=== PATIENT | male | born 1940 | race Caucasian/White ===

== ENCOUNTER 2016-10-23 14:39 | Inpatient (IN) ==
[2016-10-23] MEDS ORDERED: methylPREDNISolone SOD SUC 125 MG/2 ML VIAL IV STA (15:38)
[2016-10-23] MEDS ORDERED: LEVOFLOXACIN INJ 750 MG in PREMIX 1 EACH IV STA (15:38)
[2016-10-23] MEDS ORDERED: ALBUTEROL/IPRATROPIUM 3 ML NEB RESP TX STA (15:38)
[2016-10-23] MEDS ORDERED: ONDANSETRON 4 MG/2 ML VIAL IV STA (15:38)
--- NOTE | 2016-10-23 15:43 | Emergency Department Note ---
Arrival - Arrival Chief Complaint: Upper Respiratory Stated Complaint: vomiting,sob ED Nursing Triage Note: C/O Having coughing and congestion since last evening., + chills., + nausea., + vomiting ., Mode of Arrival: Wheelchair Limitations: No Limitations Source: Patient Time Seen by Provider: 10/23/16 15:38 - History of Present Illness HPI Narrative: This 76-year-old white male presents with 4 days of progressive cough productive of discolored sputum, intermittent wheeze, nasal congestion and drainage, increasing dyspnea on exertion, nausea, vomiting, and loose stools. He denies chills or fever but does have some mild mechanical chest wall pain with heavy coughing. Currently he appears in no acute medical distress. Onset (ago): day(s) (Patient presents 4 days post onset of symptoms) Allergies/Adverse Reactions: Allergies Allergy/AdvReac Type Severity Reaction Status Date / Time fish oil Allergy HIVES Verified 10/23/16 14:46 iodine Allergy HIVES Verified 10/23/16 14:46 ORANGE JUICE Allergy Severe RASH Uncoded 04/08/16 06:07 SHRIMP Allergy Severe RASH Uncoded 04/08/16 06:07 Home Medications: Home Medications Medication Instructions Recorded Confirmed Type Amlodipine Besylate 5 mg PO BID 10/24/14 10/23/16 History Atenolol 50 mg PO QAM 10/24/14 10/23/16 History Glimepiride 4 mg PO QAM 10/24/14 10/23/16 History Losartan [Cozaar] 50 mg PO DAILY 10/24/14 04/08/16 History Sertraline [Zoloft] 2 tablet PO DAILY 10/24/14 04/08/16 History Simvastatin [Zocor] 10 mg PO BEDTIME 10/24/14 04/08/16 History hydroCHLOROthiazide 25 mg PO DAILY 10/24/14 04/08/16 History [Hydrochlorothiazide] Pramipexole [Mirapex] 1.25 mg PO BEDTIME 12/29/15 04/08/16 History Cholecalciferol (Vitamin D3) 2,000 unit PO DAILY 10/23/16 History [Vitamin D3] Ferrous Sulfate 325 mg PO DAILY 10/23/16 History Hydrocodone/Acetaminophen 1 tablet PO Q6H PRN 10/23/16 History [Hydrocodon-Acetaminophn 10-325] Magnesium Oxide 400 mg PO BID 10/23/16 History Metformin HCl [Metformin HCl ER] 1,000 mg PO BID 10/23/16 History Trazodone HCl 100 mg PO BEDTIME 10/23/16 History raNITIdine HCl [Ranitidine HCl] 300 mg PO BID 10/23/16 History Review of System - Review of System 12 point system: reviewed and no additional remarkable complaints except as stated - Review of System Constitutional: Present: as per HPI Head/Ears/Nose/Throat: Present: see HPI Respiratory: Present: as per HPI Cardiovascular: Present: as per HPI Gastrointestinal: Present: as per HPI Medical,Surgical,& Family Hx - Medical History Cardio: History of: CAD, [place] Psychological: History of: Anxiety Disorders Neurology: No history of: Seizures HEENT: History of: Eye Problem (SQUAMOUS CELL LEFT EYE LESION) Endocrine: History of: Diabetes Mellitus (NIDDM) Rheumatology: History of;: Rheumatoid Arthritis Genitourinary: History of: Bladder Problem ([place]) Gastrointestinal: History of: GERD Musculoskeletal: History of: Back/Neck Problems (treated at [place] [facility]), Musculoskeletal Problems (right lower leg, restless legs) Other: History of: MRSA - Surgical History Cardiac Surgeries: Sugical HX of: Cardiac Catheterization, Cardiac Surgery ( CABG STENT OPEN GEART DR MARY OWEN) Thoracic Surgeries: Patient denies;: Organ Transplant HEENT Surgeries: Surgical HX of: Eye Surgery (EXCISION LEFT EYE WITH FROZEN SECTION) Abdominal Surgeries: Surgical HX of: Appendectomy, Cholecystectomy Reproductive Surgeries: Surgical HX of;: Cystoscopy Patient denies;: Genitourinary Surgery (TURB 04/02) Orthopedic Surgeries: Surgical HX of;: Orthopedic Surgery (right shoulder repair , arthrodesis left ankle BACK) - Family History Family History: Reports;: Family Diabetes (SON), Family Heart Disease (SON), Family Hypertension (SON) Denies;: Family Anesthesia Reaction, Family Cancer, Family Psychiatric Problems, Family Stroke - Social History Smoking Status: Never smoker Frequency of Alcohol Use: None Type of Drug Use: None Exam Physical Examination: GENERAL: Well developed, well nourished elderly white male in no acute distress. HEENT: Normocephalic. No trauma. Moist mucous membranes. EOMI. PERRLA. ENT ears clear, throat clear, nose reveals nasal mucosa erythema and edema NECK: Supple. Cervical adenopathy. CARDIAC: Regular. No murmurs. Heart rate 78 CHEST: Scattered expiratory wheeze and rhonchi. No respiratory distress. O2 sat 93% ABDOMEN: Soft. Nontender. Active bowel sounds. EXTREMITIES: No trauma. Normal ROM. No pedal edema. SKIN: No diaphoresis. No rash. NEURO: Alert. Neuro intact. No focal deficits. Vital Signs: Vital Signs Temperature 99.0 F 10/23/16 15:46 Pulse Rate 81 10/23/16 16:12 Respiratory Rate 17 10/23/16 16:12 Blood Pressure 156/57 10/23/16 15:46 O2 Sat by Pulse Oximetry 100 10/23/16 16:12 Course - Reevaluation(s) Reevaluation #1: Advised patient in the face of a pneumonia that he would need admission. - Consultations Consultation #1: Discussed with hospitalist service will admit for further evaluation treatment. Results - Labs CBC & BMP: 10/23/16 15:35 10/23/16 15:35 Labs: I reviewed the laboratory noted the bump in white cell count and troponin with moderate decrement in hematocrit. - Impressions EKG: Sinus rhythm at 77 with normal [place] interval and QRS duration. Evidence of old lateral [place]. Nonspecific ST changes with no acute injury pattern noted. - Diagnostic Findings Procedure: Chest x-ray: image reviewed by me, report reviewed by me (Pneumonia medial right lung base) Disposition Clinical Impression: Pneumonia, COPD Case discussed with: patient, patient's family Disposition: Still a Patient Condition: Guarded Time of Disposition: 16:45
[2016-10-23 15:51] LABS: Basophils % 0.3 % (0.0-0.8); Eosinophils # 0.1 10*3/uL (0.0-0.87); Eosinophils % 0.9 % (0.00-10.9); Hematocrit 35.2 VOL% (42.0-52.0); Hemoglobin 12.2 GM/DL (14.0-18.0); Immature Granulocytes % 0.5 %; Immature Granulocytes Absolute 0.06 #; Lymphocytes # 1.3 10*3/uL (1.4-4.0); Mean Corpuscular HGB Conc 34.7 GM/DL (32-36); Mean Corpuscular Hemoglobin 30 PG (27-34); Mean Corpuscular Volume 87.6 FL (87-102); Mean Platelet Volume 10.6 FL (9.6-12.0); Monocytes # 1.1 10*3/uL (0.11-0.8); Monocytes % 10.1 % (1.7-12.7); Neutrophils # 8.4 10*3/uL (1.4-7.4); Neutrophils % 76.2 % (38.7-73.9); Platelet Count 187 T/CUMM (130-400); Red Blood Count 4.02 MC/CUMM (3.8-5.5); Red Cell Distribution Width 14.2 % (9.3-17.3)
[2016-10-23] MEDS ORDERED: ONDANSETRON 4 MG/2 ML VIAL ONE (15:54)
[2016-10-23] MEDS ORDERED: methylPREDNISolone SOD SUC 125 MG/2 ML VIAL ONE (15:54)
--- NOTE | 2016-10-23 16:07 | XRay Report ---
History: Cough and fever Date: 10/23/2016 Study: Chest x-ray PA and lateral Comparison exam: October 24, 2014 The cardiac silhouette is not enlarged. There is no mediastinal mass. The patient is status post prior median sternotomy. There is mild to moderate aortic arch calcification. The pulmonary vasculature is not engorged. There is no pleural effusion. The lungs are well-expanded. There are some scattered emphysematous changes in the lungs. There is some equivocal mild infiltrate in the medial right lung base. There is moderate thoracic spondylosis and mild to moderate osteopenia. Impression: Equivocal low-grade pneumonia medial right lung base. Otherwise unchanged PROCEDURE INTERPRETED AT [facility] DEPARTMENT OF RADIOLOGY Final Report Signed by: Dr. Lakesha Ryan
[2016-10-23 16:14] LABS: Alanine Aminotransferase 18 U/L (16-61); Alkaline Phosphatase 54 U/L (45-117); Aspartate Amino Transferase 15 U/L (0-37); Blood Urea Nitrogen 20 MG/DL (7-18); Calcium 8.6 MG/DL (8.5-10.1); Glucose 195 MG/DL (74-106); Osmolality,Calculated 269.7 MOS/KG (273-304); Sodium 131 MMOL/L (136-145); Total Protein 7.2 G/DL (6.4-8.3)
[2016-10-23 16:16] LABS: Troponin I Only 0.124 NG/ML (0.00-0.045)
[2016-10-23 16:25] LABS: INR 1.1; PT Patient Result 11.2 SECS; Partial Thromboplastin Time 32.8 SECS (0-40)
--- NOTE | 2016-10-23 16:29 | EKG Report ---
Stationary ECG Study [facility] ER Test Date: 10/23/2016 4:24:25 PM Pat Name: LUÍS HERZOG Department: Room: Gender: M [employer]ting [employer]: : 1940 Requested by: Samir Cifuentes Order Number: [id number] Reading MD: HERACLIO GARRETT Intervals [place] Rate: 77 P: 114 NV: 166 QRS: 88 QRSD: 98 T: 103 QT: 376 QTc: 408 Interpretive Statements SINUS RHYTHM LATERAL MYOCARDIAL INFARCTION, OF INDETERMINATE AGE WARNING: DATA QUALITY MAY AFFECT INTERPRETATION Electronically Signed On 10-24-16 09:04:27 CDT by HERACLIO GARRETT [email or web address]
[2016-10-23] MEDS ORDERED: LEVOFLOXACIN INJ 150 ML IV ONE (16:39)
[2016-10-23] MEDS ORDERED: ALBUTEROL 2.5 MG/3 ML NEB RESP TX PRN (16:39)
[2016-10-23] MEDS ORDERED: LEVOFLOXACIN INJ 750 MG in PREMIX 1 EACH IV SCH (17:00)
--- NOTE | 2016-10-23 17:23 | Hospitalist History & Physical ---
Assessment and Plan (1) Severe sepsis Status: Acute Assessment and plan: Upon review of the patient's medical record, at the time of ED presentation the patient's respiratory rate was noted at 20. In addition, the neutrophil percentage was grossly elevated at 76.2. Chest x-ray significant for equivocal low-grade pneumonia affecting the medial right base lung and the patient's lactic acid was noted at 3.2. Based on these findings, the patient meets the sepsis criteria. We will initiate the sepsis bundle. Current Visit: Yes (2) Elevated troponin I level Status: Acute Assessment and plan: Troponin level was noted at 0.124 at the time of admission. We will obtain serial cardiac enzymes. Given the severity of the patient's comorbidities, we will consult cardiology to evaluate and assist during the clinical encounter. Current Visit: Yes (3) Right middle lobe pneumonia Status: Acute Assessment and plan: Chest x-ray significant for right middle lobe pneumonia. We will start empiric antibiotic coverage, inhaled bronchodilators, intravenous corticosteroids, and recheck chest x-ray in a.m. Current Visit: Yes (4) Diabetes mellitus type 1 Status: Acute Assessment and plan: We will obtain hemoglobin A1c and start Accu-Cheks with sliding scale coverage. Current Visit: Yes History of Present Illness Chief complaint: Shortness of breath and vomiting History of present illness: This is a chronically ill 6-year-old male that presented to the ED at [facility] for the evaluation of vomiting and shortness of breath. The patient has a medical history significant for hypertension, chronic obstructive pulmonary disease, hyperlipidemia, restless leg syndrome, anemia, type 2 diabetes, insomnia, gastroesophageal reflux disease, depression, rheumatoid arthritis, bladder cancer, chronic neck and back pain, methicillin- resistant Staphylococcus aureus, and anxiety. The patient has surgical history significant for cardiac catheterization with stent placement, coronary artery bypass graft, left eye excision with frozen section, appendectomy, cholecystectomy, cystoscopy, transurethral resection of the bladder, right shoulder repair, left ankle repair. The patient reported the onset of symptoms 4 days prior to presentation. He reported that he initially started experience a cough that gradually progressed to a productive cough with discolored sputum. In addition, he reported that he experience an intermittent wheeze, nasal congestion, nasal drainage, increasing dyspnea on exertion, nausea, vomiting, and loose stools. He denied chills and fever however, reported mild chest wall pain and attributed that to severe coughing His symptoms became severe this morning prompting him to present to the ED for further evaluation. The patient was assessed at the time of ED presentation. The patient was noted to be experiencing respiratory difficulty and inhaled bronchodilator treatments were initiated. The patient was noted to be febrile with a temperature noted at 99 even. Labs were obtained which were significant for hemoglobin 12.2, neutrophil percentage 76.2, #percentage 12.0, neutrophil #8.4, lymphocytes #1.3 , monocytes #1.1 hematocrit 35.2, sodium 131, chloride 97, BUN 20, glucose 195, lactic acid 3.2, troponin 0 0.124, BNP 166, albumin 3.0, and globulin 4.2. Chest x-ray significant for equivocal low-grade pneumonia medial right base lung. After brief discussion with both Dr. Castellanos and Dr. Edward, the patient will be admitted to the hospitalist service for continuation of care. Due to the elevation in the patient's troponins at the time of ED presentation, the patient will be placed on the telemetry unit for close observation and a cardiology consultation has been requested. Home medications have been reviewed and reconciled. CODE STATUS discussed; patient is a FULL CODE. Upon review of the patient's medical record, at the time of ED presentation the patient's respiratory rate was noted at 20. In addition, the neutrophil percentage was grossly elevated at 76.2. Chest x-ray significant for equivocal low-grade pneumonia affecting the medial right base lung and the patient's lactic acid was noted at 3.2. Based on these findings, the patient meets the severe sepsis criteria. We will initiate the sepsis bundle. Home Medications Medication Instructions Recorded Confirmed Type Amlodipine Besylate 5 mg PO BID 10/24/14 10/23/16 History Atenolol 50 mg PO QAM 10/24/14 10/23/16 History Glimepiride 4 mg PO QAM 10/24/14 10/23/16 History Losartan [Cozaar] 50 mg PO QAM 10/24/14 10/23/16 History Sertraline [Zoloft] 100 mg PO DAILY W/SUPPER 10/24/14 10/23/16 History Simvastatin [Zocor] 10 mg PO DAILY W/SUPPER 10/24/14 10/23/16 History hydroCHLOROthiazide 25 mg PO QAM 10/24/14 10/23/16 History [Hydrochlorothiazide] Pramipexole [Mirapex] 1.25 mg PO BEDTIME 12/29/15 10/23/16 History Aspirin EC Tab 325 mg PO QAM 10/23/16 10/23/16 History Cholecalciferol (Vitamin D3) 2,000 unit PO QAM 10/23/16 10/23/16 History [Vitamin D3] Ferrous Sulfate 325 mg PO QAM 10/23/16 10/23/16 History Hydrocodone/Acetaminophen 1 tablet PO Q6H PRN 10/23/16 10/23/16 History [Hydrocodon-Acetaminophn 10-325] Magnesium Oxide 400 mg PO BID 10/23/16 10/23/16 History Metformin HCl [Metformin HCl ER] 1,000 mg PO BID 10/23/16 10/23/16 History Trazodone HCl 100 mg PO BEDTIME 10/23/16 10/23/16 History raNITIdine HCl [Ranitidine HCl] 300 mg PO BID 10/23/16 10/23/16 History Allergies Allergy/AdvReac Type Severity Reaction Status Date / Time fish oil Allergy HIVES Verified 10/23/16 14:46 iodine Allergy HIVES Verified 10/23/16 14:46 ORANGE JUICE Allergy Severe RASH Uncoded 04/08/16 06:07 SHRIMP Allergy Severe RASH Uncoded 04/08/16 06:07 Medical,Surgical,& Family Hx - Medical History Cardio: History of: CAD, [place] Psychological: History of: Anxiety Disorders Neurology: No history of: Seizures HEENT: History of: Eye Problem (SQUAMOUS CELL LEFT EYE LESION) Endocrine: History of: Diabetes Mellitus (NIDDM) Rheumatology: History of;: Rheumatoid Arthritis Genitourinary: History of: Bladder Problem ([place]) Gastrointestinal: History of: GERD Musculoskeletal: History of: Back/Neck Problems (treated at [place] [facility]), Musculoskeletal Problems (right lower leg, restless legs) Other: History of: MRSA - Surgical History Cardiac Surgeries: Sugical HX of: Cardiac Catheterization, Cardiac Surgery ( CABG STENT OPEN GEART DR MARY OWEN) Thoracic Surgeries: Patient denies;: Organ Transplant HEENT Surgeries: Surgical HX of: Eye Surgery (EXCISION LEFT EYE WITH FROZEN SECTION) Abdominal Surgeries: Surgical HX of: Appendectomy, Cholecystectomy Reproductive Surgeries: Surgical HX of;: Cystoscopy Patient denies;: Genitourinary Surgery (TURB 04/02) Orthopedic Surgeries: Surgical HX of;: Orthopedic Surgery (right shoulder repair , arthrodesis left ankle BACK) - Family History Family History: Reports;: Family Diabetes (SON), Family Heart Disease (SON), Family Hypertension (SON) Denies;: Family Anesthesia Reaction, Family Cancer, Family Psychiatric Problems, Family Stroke - Social History Smoking Status: Never smoker Frequency of Alcohol Use: None Type of Drug Use: None Exam - Constitutional Vitals: Period Temp Pulse Resp BP Sys/[place] Pulse Ox Last 24 Hr 99.0 F-99.0 F 73-81 16-20 132-156/57-78 92-100 Results - Labs CBC & BMP: 10/23/16 15:35 10/23/16 15:35 Sepsis - Sepsis Classification of Sepsis: Severe Sepsis Possible / Suspected infection from: Right lower lobe pneumonia - Physical Exam Physical Exam: Upon review of the patient's medical record, at the time of ED presentation the patient's respiratory rate was noted at 20. In addition, the neutrophil percentage was grossly elevated at 76.2. Chest x-ray significant for equivocal low-grade pneumonia affecting the medial right base lung and the patient's lactic acid was noted at 3.2. Based on these findings, the patient meets the severe sepsis criteria. We will initiate the sepsis bundle. - Physical Exam Respiratory exam: rhonchi, wheezes Capillary Refill: Less Than 3 Seconds Peripheral pulses: Radial (L): 1+, Radial (R): 1+, Dorsalis Pedis (L) PM: 1+, Dorsalis Pedis (R) PM: 1+, Posterior Tibialis (L): 1+, Posterior Tibialis (R): 1 + Cardiovascular exam: regular rate and rhythm Skin exam: normal color
[2016-10-23] MEDS ORDERED: GLUCAGON 1 MG VIAL IM PRN (17:29)
[2016-10-23] MEDS ORDERED: DEXTROSE 50% 25 GM/50 ML SYRINGE IV PRN (17:29)
[2016-10-23] MEDS ORDERED: ACETAMINOPHEN 325 MG TABLET PO PRN (18:14)
[2016-10-23] MEDS ORDERED: MORPHINE 2 MG/1 ML SYRINGE IV PRN (18:14)
[2016-10-23] MEDS: SODIUM CHLORIDE 0.9% 1,000 ML IV SCH (18:37)
--- NOTE | 2016-10-23 19:15 | Ultrasound Report ---
History: Dyspnea Date: 10/23/2016 Study: Bilateral lower extremity color-flow venous Doppler study Comparison exam: No previous Color Doppler, wave form analysis, and compression analysis of the deep veins of both lower extremities from the common femoral vein level through the popliteal vein level shows that the veins are readily compressible. There is no abnormal intraluminal material to suggest thrombus. Waveform analysis is unremarkable. Ultrasound images were captured and archived Impression: No evidence of acute DVT PROCEDURE INTERPRETED AT [facility] DEPARTMENT OF RADIOLOGY Final Report Signed by: Dr. Lakesha Ryan
[2016-10-23] MEDS: ALBUTEROL/IPRATROPIUM 3 ML NEB RESP TX SCH (20:58)
[2016-10-23] MEDS: PRAMIPEXOLE 1 MG TABLET PO SCH (21:49)
[2016-10-23] MEDS: PRAMIPEXOLE 0.25 MG TABLET PO SCH (21:49)
[2016-10-23] MEDS: INSULIN REGULAR 100 UNIT/ML SUBCUT SCH (21:49)
[2016-10-23] MEDS: INSULIN GLARGINE 100 UNIT/ML SUBCUT SCH (21:51)
[2016-10-23] MEDS: FAMOTIDINE 20 MG TABLET PO SCH (21:52)
[2016-10-23] MEDS: ENOXAPARIN 40 MG/0.4 ML SYRINGE SUBCUT SCH (21:52)
[2016-10-23] MEDS: MAGNESIUM OXIDE 400 MG TABLET PO SCH (21:53)
[2016-10-23] MEDS: traZODone 50 MG TABLET PO SCH (21:53)
[2016-10-23] MEDS: amLODIPine 5 MG TABLET PO SCH (21:53)
[2016-10-23] MEDS: cefTRIAXone 1,000 MG in SODIUM CHLORIDE 0.9% 100 ML IV SCH (21:53)
[2016-10-24] MEDS: ALBUTEROL/IPRATROPIUM 3 ML NEB RESP TX SCH ×4 (01:18→18:48)
[2016-10-24] MEDS: SODIUM CHLORIDE 0.9% 1,000 ML IV SCH (04:44)
[2016-10-24 05:19] LABS: Basophils % 0.2 % (0.0-0.8); Hematocrit 31.6 VOL% (42.0-52.0); Hemoglobin 11.1 GM/DL (14.0-18.0); Immature Granulocytes % 0.6 %; Immature Granulocytes Absolute 0.06 #; Lymphocytes # 0.7 10*3/uL (1.4-4.0); Lymphocytes % 7.4 % (21.2-54.2); Mean Corpuscular HGB Conc 35.1 GM/DL (32-36); Mean Corpuscular Hemoglobin 31 PG (27-34); Mean Corpuscular Volume 87.1 FL (87-102); Mean Platelet Volume 10.7 FL (9.6-12.0); Monocytes # 0.5 10*3/uL (0.11-0.8); Monocytes % 5.4 % (1.7-12.7); Neutrophils # 8.1 10*3/uL (1.4-7.4); Neutrophils % 86.4 % (38.7-73.9); Platelet Count 186 T/CUMM (130-400); Red Blood Count 3.63 MC/CUMM (3.8-5.5); Red Cell Distribution Width 14.4 % (9.3-17.3); White Blood Count 9.4 T/CUMM (4-12)
[2016-10-24 05:56] LABS: Albumin 2.8 G/DL (3.4-5.0); Calcium 8.2 MG/DL (8.5-10.1); Osmolality,Calculated 282.2 MOS/KG (273-304); Potassium 4.7 MMOL/L (3.5-5.1); Total Protein 6.3 G/DL (6.4-8.3)
[2016-10-24 06:16] LABS: Magnesium 2.5 MG/DL (1.8-2.4); Phosphorous 2.9 MG/DL (2.5-4.9)
[2016-10-24] MEDS: methylPREDNISolone SOD SUC 40 MG/1 ML VIAL IV SCH ×3 (09:02→16:04)
[2016-10-24] MEDS: INSULIN REGULAR 100 UNIT/ML SUBCUT SCH ×4 (09:03→21:53)
--- NOTE | 2016-10-24 10:32 | XRay Report ---
History: COPD Date: 10/24/2016 Study: Chest x-ray AP portable Comparison exam: 10/23/2016 The cardiac silhouette is not enlarged. There is some pulmonary vascular engorgement. The mediastinal contours are otherwise unchanged in this patient status post prior median sternotomy. There is mild hazy edema in the lower lungs. There is mild right pleural effusion. Osseous structures are unchanged. Impression: Evidence of cardiomegaly and interval development of CHF PROCEDURE INTERPRETED AT [facility] DEPARTMENT OF RADIOLOGY Final Report Signed by: Dr. Lakesha Ryan
--- NOTE | 2016-10-24 10:34 | Hospitalist Progress Note ---
Assessment and Plan (1) Right middle lobe pneumonia Status: Acute Assessment and plan: Secondary bronchospasm with stable hemodynamics and oxygen levels. Current Visit: Yes (2) Diabetes mellitus Status: Chronic Current Visit: Yes (3) Atherosclerotic cardiovascular disease Status: Chronic Assessment and plan: History of percutaneous interventions followed by aortocoronary bypass graft Current Visit: Yes Hospitalist: Subjective Interval history: 76-year-old male non-smoker for 25 years with no history of pulmonary disease presented with progressive shortness of breath associated with bronchospasm fever and cough productive of discolored sputum. The patient demonstrated on presentation radiographic evidence of a right middle right lower lobe infiltrative process with loss of detail the right hemidiaphragm. He was admitted and placed on antibiotics for community-acquired pneumonia. He is remained afebrile subsequent to admission with stable vital signs. He continues to cough with sputum production. His overnight oxygen saturations on 3 L per nasal cannula have been 94-95%. Patient has history of remote percutaneous interventions followed by aortocoronary bypass grafting. On presentation the patient's troponin was recorded 0.050 slightly of elevated above normal. His admitting EKG demonstrates a severe rightward P-wave axis suggesting limb lead reversal. Present precordial leads are unremarkable. Overnight he is maintaining sinus rhythm with gradual slowing of his heart rate as his bronchospasm has improved. The patient is a known diabetic treated with oral agent. Blood sugars have been elevated with the introduction of corticosteroids subsequent to admission. He has been covered with a sliding scale and in addition is listed as taking Lantus insulin 16 units at bedtime. Exam - Constitutional Vitals: Period Temp Pulse Resp BP Sys/[place] Pulse Ox Last 24 Hr 96.6 F-99.0 F 63-81 16-20 113-156/55-89 90-100 General appearance: over weight - Respiratory Respiratory exam: Present: rales (Right base), wheezes (Confined to the right base only). Absent: rhonchi - Cardiovascular Cardiovascular exam: Present: regular rate and rhythm - GI/Abdominal GI/Abdominal exam: Present: normal bowel sounds. Absent: organomegaly, tenderness - Extremities Exam Extremities exam: Absent: edema - Neurological Exam Neurological exam: Present: alert, oriented X3 Results - Labs CBC & BMP: 10/24/16 04:46 10/24/16 04:46 Labs: Magnesium 2.5 Albumin 2.8 - Diagnostic Findings Procedure: Chest x-ray: image reviewed by me (Apical lordotic project median sternotomy loss of detail at right diaphragm.), Ultrasound: report reviewed by me (Negative for DVT)
[2016-10-24] MEDS: LOSARTAN 50 MG TABLET PO SCH (11:13)
[2016-10-24] MEDS: MAGNESIUM OXIDE 400 MG TABLET PO SCH ×2 (11:14→21:52)
[2016-10-24] MEDS: FAMOTIDINE 20 MG TABLET PO SCH ×2 (11:14→21:53)
[2016-10-24] MEDS: ATENOLOL 50 MG TABLET PO SCH (11:15)
[2016-10-24] MEDS: ASPIRIN EC 325 MG TABLET PO SCH (11:15)
[2016-10-24] MEDS: amLODIPine 5 MG TABLET PO SCH ×2 (11:15→21:53)
[2016-10-24] MEDS: PANTOPRAZOLE 40 MG TABLET PO SCH (11:16)
--- NOTE | 2016-10-24 15:07 | Cardiology Consult Note ---
Assessment and Plan - Time spent with patient Time spent with patient: Greater than 30 minutes (1) Right middle lobe pneumonia Status: Acute Assessment and plan: His troponins are elevated but there are dean zone. He is not having angina. I doubt he has ACS. Does not need a treadmill or heart cath at this time Regarding his x-ray it suggest more like pneumonia, particularly given his clinical scenario. We will continue to treat along those lines Regarding dean zone bnp, And normal left her ejection fraction, he could have some diastolic heart failure. I will add a low-dose of spironolactone Can diurese with more IV Lasix if needed We will get serial EKGs Agree with antibiotics Agree with duo nebs With sodium low will try to fluid restrict I am suspicious he has sleep apnea. I recommended that we refer him to Dr. Gabriel Bray for PSG. The patient declines. Thank you for allowing me to participate in this patient's care Current Visit: Yes (2) Elevated troponin I level Status: Acute Current Visit: Yes (3) Diastolic heart failure Status: Acute Current Visit: Yes (4) Diabetes mellitus type 1 Status: Acute Current Visit: Yes (5) Atherosclerotic cardiovascular disease Status: Chronic Current Visit: Yes History of Present Illness - Data of Consult Patient: known to practice within the last 3 years Consult date: 10/24/16 Requesting Physician: Rogers Cooper - Consult Narrative Reason for consult: Evaluate heart failure, questionable pneumonia History of present illness: Mr. 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 wilcox Patient has known CAD. Has a prior bypass. Within the last year or so he has had ischemia workup which was negative. Also his LVEF is normal, greater than 55%. He presents with some coughing and shortness of breath. Chest x-ray read by the radiologist as possible heart failure. However, clinically it sounds like he has bronchitis or pneumonia. He has had coughing which has been productive. He is being treated for both. I was asked to see him. His BNP is 166. Prior bypass grafting Overweight Suspected sleep apnea-had a sleep study done 2 years ago which was negative, he has gained 20 pounds in weight since then Anxiety/depression-has been good on therapy in the past Has a foot problem which limits his physical activity Stress of a granddaughter who is 16 who, by his account, would like to be here in [place] but lives with her mother, who is from the patient's son, and [facility]. He do not see her very often. CC: Rogers Cooper MD - Home Medications and Allergies Home Medications: Home Medications Medication Instructions Recorded Confirmed Type Amlodipine Besylate 5 mg PO BID 10/24/14 10/23/16 History Atenolol 50 mg PO QAM 10/24/14 10/23/16 History Glimepiride 4 mg PO QAM 10/24/14 10/23/16 History Losartan [Cozaar] 50 mg PO QAM 10/24/14 10/23/16 History Sertraline [Zoloft] 100 mg PO DAILY W/SUPPER 10/24/14 10/23/16 History Simvastatin [Zocor] 10 mg PO DAILY W/SUPPER 10/24/14 10/23/16 History hydroCHLOROthiazide 25 mg PO QAM 10/24/14 10/23/16 History [Hydrochlorothiazide] Pramipexole [Mirapex] 1.25 mg PO BEDTIME 12/29/15 10/23/16 History Aspirin EC Tab 325 mg PO QAM 10/23/16 10/23/16 History Cholecalciferol (Vitamin D3) 2,000 unit PO QAM 10/23/16 10/23/16 History [Vitamin D3] Ferrous Sulfate 325 mg PO QAM 10/23/16 10/23/16 History Hydrocodone/Acetaminophen 1 tablet PO Q6H PRN 10/23/16 10/23/16 History [Hydrocodon-Acetaminophn 10-325] Magnesium Oxide 400 mg PO BID 10/23/16 10/23/16 History Metformin HCl [Metformin HCl ER] 1,000 mg PO BID 10/23/16 10/23/16 History Trazodone HCl 100 mg PO BEDTIME 10/23/16 10/23/16 History raNITIdine HCl [Ranitidine HCl] 300 mg PO BID 10/23/16 10/23/16 History Allergies/Adverse Reactions: Allergies Allergy/AdvReac Type Severity Reaction Status Date / Time fish oil Allergy HIVES Verified 10/23/16 14:46 iodine Allergy HIVES Verified 10/23/16 14:46 ORANGE JUICE Allergy Severe RASH Uncoded 04/08/16 06:07 SHRIMP Allergy Severe RASH Uncoded 04/08/16 06:07 12 point system: reviewed and no additional remarkable complaints except as stated (A 12 point review of systems is negative except for as mentioned in HPI. ) Medical,Surgical,& Family Hx - Medical History Cardio: History of: CAD, MD Psychological: History of: Anxiety Disorders Neurology: No history of: Seizures HEENT: History of: Eye Problem (SQUAMOUS CELL LEFT EYE LESION) Endocrine: History of: Diabetes Mellitus (NIDDM) Rheumatology: History of;: Rheumatoid Arthritis Genitourinary: History of: Bladder Problem (CA) Gastrointestinal: History of: GERD Musculoskeletal: History of: Back/Neck Problems (treated at [facility]), Musculoskeletal Problems (right lower leg, restless legs) Other: History of: MRSA - Surgical History Cardiac Surgeries: Sugical HX of: Cardiac Catheterization, Cardiac Surgery ( CABG STENT OPEN GEART DR MARY OWEN) Thoracic Surgeries: Patient denies;: Organ Transplant HEENT Surgeries: Surgical HX of: Eye Surgery (EXCISION LEFT EYE WITH FROZEN SECTION) Abdominal Surgeries: Surgical HX of: Appendectomy, Cholecystectomy Reproductive Surgeries: Surgical HX of;: Cystoscopy Patient denies;: Genitourinary Surgery (TURB 04/02) Orthopedic Surgeries: Surgical HX of;: Orthopedic Surgery (right shoulder repair , arthrodesis left ankle BACK) - Family History Family History: Reports;: Family Diabetes (SON), Family Heart Disease (SON), Family Hypertension (SON) Denies;: Family Anesthesia Reaction, Family Cancer, Family Psychiatric Problems, Family Stroke - Social History Smoking Status: Former smoker Frequency of Alcohol Use: None Type of Drug Use: None Marital Status: Lives With:: Spouse Functional capacity: independent ambulation Physical Examination Vital Signs Temp Pulse Resp BP Pulse Ox 99.0 F 78 20 156/57 93 L 10/23/16 14:41 10/23/16 14:41 10/23/16 14:41 10/23/16 14:41 10/23/16 14:41 Exam: HEENT: Pupils equal, reactive to light and accommodation Neck: NoJVD or bruit Lungs clear to auscultation Heart: Regular rhythm rate with normal S1 and S2. Apical S4, 1/6 systolic ejection murmur along the left lower sternal border. Abdomen: No hepatosplenomegaly Spine/extremities: No clubbing, cyanosis, or edema Neuro: Nonfocal Psych: No depression or anxiety Result/EKG - Labs CBC & BMP: 10/24/16 04:46 10/24/16 04:46 Lab Results: I have reviewed the past 24 hour labs Labs: Laboratory Results - last 24 hr 10/23/16 10/23/16 10/23/16 15:35 15:35 15:35 WBC 11.0 RBC 4.02 Hgb 12.2 L Hct 35.2 L MCV 87.6 MCH 30 MCHC 34.7 RDW 14.2 Plt Count 187 MPV 10.6 Neut % (Auto) 76.2 H Lymph % (Auto) 12.0 L Leslie % (Auto) 10.1 Eos % (Auto) 0.9 Baso % (Auto) 0.3 Neut # (Auto) 8.4 H Lymph # (Auto) 1.3 L Leslie # (Auto) 1.1 H Eos # (Auto) 0.1 Baso # (Auto) 0.0 Immature Gran % 0.5 Nucleated RBC % 0.0 Immature Gran # 0.06 Nucleated RBCs # 0.00 Immature Plt Fraction 0.0 INR 1.1 PT Patient/Control Mix 11.2 Circ Anticoag PTT 32.8 Sodium 131 L Potassium 4.0 Chloride 97 L Carbon Dioxide 26 Anion Gap 12.0 BUN 20 H Creatinine 1.20 GFR Calculation 82 BUN/Creatinine Ratio 16.00 Glucose 195 H POC Glucose Hemoglobin A1c Calculated Osmolality 269.7 L Lactic Acid Calcium 8.6 Phosphorus Magnesium Total Bilirubin 0.40 AST 15 ALT 18 Alkaline Phosphatase 54 Total Creatine Kinase 193 CK-MB (CK-2) 2.6 Troponin I 0.124 H B-Natriuretic Peptide Total Protein 7.2 Albumin 3.0 L Globulin 4.2 H Albumin/Globulin Ratio 0.7 L 10/23/16 10/23/16 10/23/16 15:35 15:35 15:35 WBC RBC Hgb Hct MCV MCH MCHC RDW Plt Count MPV Neut % (Auto) Lymph % (Auto) Leslie % (Auto) Eos % (Auto) Baso % (Auto) Neut # (Auto) Lymph # (Auto) Leslie # (Auto) Eos # (Auto) Baso # (Auto) Immature Gran % Nucleated RBC % Immature Gran # Nucleated RBCs # Immature Plt Fraction INR PT Patient/Control Mix Circ Anticoag PTT Sodium Potassium Chloride Carbon Dioxide Anion Gap BUN Creatinine GFR Calculation BUN/Creatinine Ratio Glucose POC Glucose Hemoglobin A1c 7.6 H Calculated Osmolality Lactic Acid 3.2 H Calcium Phosphorus Magnesium Total Bilirubin AST ALT Alkaline Phosphatase Total Creatine Kinase CK-MB (CK-2) Troponin I B-Natriuretic Peptide 166 H Total Protein Albumin Globulin Albumin/Globulin Ratio 10/23/16 10/23/16 10/23/16 18:13 19:33 21:29 WBC RBC Hgb Hct MCV MCH MCHC RDW Plt Count MPV Neut % (Auto) Lymph % (Auto) Leslie % (Auto) Eos % (Auto) Baso % (Auto) Neut # (Auto) Lymph # (Auto) Leslie # (Auto) Eos # (Auto) Baso # (Auto) Immature Gran % Nucleated RBC % Immature Gran # Nucleated RBCs # Immature Plt Fraction INR PT Patient/Control Mix Circ Anticoag PTT Sodium Potassium Chloride Carbon Dioxide Anion Gap BUN Creatinine GFR Calculation BUN/Creatinine Ratio Glucose POC Glucose 184 H 275 H Hemoglobin A1c Calculated Osmolality Lactic Acid Calcium Phosphorus Magnesium Total Bilirubin AST ALT Alkaline Phosphatase Total Creatine Kinase CK-MB (CK-2) Troponin I 0.087 H D B-Natriuretic Peptide Total Protein Albumin Globulin Albumin/Globulin Ratio 10/23/16 10/24/16 10/24/16 22:25 04:46 04:46 WBC 9.4 RBC 3.63 L Hgb 11.1 L Hct 31.6 L MCV 87.1 MCH 31 MCHC 35.1 RDW 14.4 Plt Count 186 MPV 10.7 Neut % (Auto) 86.4 H Lymph % (Auto) 7.4 L Leslie % (Auto) 5.4 Eos % (Auto) 0.0 Baso % (Auto) 0.2 Neut # (Auto) 8.1 H Lymph # (Auto) 0.7 L Leslie # (Auto) 0.5 Eos # (Auto) 0.0 Baso # (Auto) 0.0 Immature Gran % 0.6 Nucleated RBC % 0.0 Immature Gran # 0.06 Nucleated RBCs # 0.00 Immature Plt Fraction 0.0 INR PT Patient/Control Mix Circ Anticoag PTT Sodium 134 L Potassium 4.7 Chloride 100 Carbon Dioxide 25 Anion Gap 13.7 BUN 23 H Creatinine 1.00 GFR Calculation 101 BUN/Creatinine Ratio 23.00 H Glucose 299 H POC Glucose Hemoglobin A1c Calculated Osmolality 282.2 Lactic Acid Calcium 8.2 L Phosphorus Magnesium Total Bilirubin 1.00 AST 19 ALT 17 Alkaline Phosphatase 53 Total Creatine Kinase CK-MB (CK-2) Troponin I 0.050 H D B-Natriuretic Peptide Total Protein 6.3 L Albumin 2.8 L Globulin 3.5 Albumin/Globulin Ratio 0.8 L 10/24/16 10/24/16 10/24/16 04:46 04:46 04:46 WBC RBC Hgb Hct MCV MCH MCHC RDW Plt Count MPV Neut % (Auto) Lymph % (Auto) Leslie % (Auto) Eos % (Auto) Baso % (Auto) Neut # (Auto) Lymph # (Auto) Leslie # (Auto) Eos # (Auto) Baso # (Auto) Immature Gran % Nucleated RBC % Immature Gran # Nucleated RBCs # Immature Plt Fraction INR PT Patient/Control Mix Circ Anticoag PTT Sodium Potassium Chloride Carbon Dioxide Anion Gap BUN Creatinine GFR Calculation BUN/Creatinine Ratio Glucose POC Glucose Hemoglobin A1c 7.8 H Calculated Osmolality Lactic Acid Calcium Phosphorus 2.9 Magnesium 2.5 H Total Bilirubin AST ALT Alkaline Phosphatase Total Creatine Kinase CK-MB (CK-2) Troponin I B-Natriuretic Peptide 156 H Total Protein Albumin Globulin Albumin/Globulin Ratio 10/24/16 10/24/16 07:32 11:54 WBC RBC Hgb Hct MCV MCH MCHC RDW Plt Count MPV Neut % (Auto) Lymph % (Auto) Leslie % (Auto) Eos % (Auto) Baso % (Auto) Neut # (Auto) Lymph # (Auto) Leslie # (Auto) Eos # (Auto) Baso # (Auto) Immature Gran % Nucleated RBC % Immature Gran # Nucleated RBCs # Immature Plt Fraction INR PT Patient/Control Mix Circ Anticoag PTT Sodium Potassium Chloride Carbon Dioxide Anion Gap BUN Creatinine GFR Calculation BUN/Creatinine Ratio Glucose POC Glucose 298 H 290 H Hemoglobin A1c Calculated Osmolality Lactic Acid Calcium Phosphorus Magnesium Total Bilirubin AST ALT Alkaline Phosphatase Total Creatine Kinase CK-MB (CK-2) Troponin I B-Natriuretic Peptide Total Protein Albumin Globulin Albumin/Globulin Ratio - Diagnostic Findings Procedure: Chest x-ray: report reviewed by me - EKG EKG results: interpreted by me Specialty Discharge - Follow Up or Referrals Follow up with: Marc Wilcox MD [Family Provider] -
[2016-10-24] MEDS ORDERED: FUROSEMIDE 20 MG/2 ML VIAL IV ONE (15:17)
[2016-10-24] MEDS: SPIRONOLACTONE 25 MG TABLET PO SCH ×2 (16:12→21:54)
[2016-10-24] MEDS: SIMVASTATIN 10 MG TABLET PO SCH (17:45)
[2016-10-24] MEDS: SERTRALINE 50 MG TABLET PO SCH (17:45)
[2016-10-24] MEDS: LEVOFLOXACIN INJ 750 MG in PREMIX 1 EACH IV SCH ×2 (17:51→18:31)
[2016-10-24] MEDS: PRAMIPEXOLE 0.25 MG TABLET PO SCH (21:52)
[2016-10-24] MEDS: INSULIN GLARGINE 100 UNIT/ML SUBCUT SCH (21:52)
[2016-10-24] MEDS: PRAMIPEXOLE 1 MG TABLET PO SCH (21:52)
[2016-10-24] MEDS: cefTRIAXone 1,000 MG in SODIUM CHLORIDE 0.9% 100 ML IV SCH (21:54)
[2016-10-24] MEDS: ENOXAPARIN 40 MG/0.4 ML SYRINGE SUBCUT SCH (21:54)
[2016-10-24] MEDS: traZODone 50 MG TABLET PO SCH (21:54)
[2016-10-25] MEDS: methylPREDNISolone SOD SUC 40 MG/1 ML VIAL IV SCH ×3 (00:47→17:15)
[2016-10-25] MEDS: SODIUM CHLORIDE 0.9% 1,000 ML IV SCH ×3 (01:19→11:01)
[2016-10-25] MEDS: ALBUTEROL/IPRATROPIUM 3 ML NEB RESP TX SCH ×4 (01:28→18:51)
[2016-10-25] MEDS ORDERED: DIAZEPAM 5 MG TABLET PO ONE (04:40)
[2016-10-25] MEDS: ONDANSETRON 4 MG/2 ML VIAL IV PRN (04:41)
[2016-10-25] MEDS: guaiFENesin 200 MG/10 ML UDCUP PO PRN ×2 (04:58→13:06)
[2016-10-25 05:23] LABS: Troponin I Only 0.026 NG/ML (0.00-0.045)
[2016-10-25 06:17] LABS: Calcium 8.7 MG/DL (8.5-10.1); Osmolality,Calculated 284.1 MOS/KG (273-304); Potassium 4.6 MMOL/L (3.5-5.1)
--- NOTE | 2016-10-25 06:19 | EKG Report ---
Stationary ECG Study [facility] Test Date: 10/25/2016 5:59:04 AM Pat Name: LUÍS HERZOG Department: Room: 288 Gender: M Electronic Operator: : 1940 Requested by: Marc Wilcox Order Number: [id number] Reading MD: CHRIS HORN Intervals [place] Rate: 65 P: 40 LA: 177 QRS: 44 QRSD: 91 T: 45 QT: 436 QTc: 447 Interpretive Statements SINUS RHYTHM WITH OCCASIONAL VENTRICULAR PREMATURE COMPLEXES Electronically Signed On 10-25-16 07:36:04 CDT by CHRIS HORN [email or web address]
[2016-10-25] MEDS: LOSARTAN 50 MG TABLET PO SCH (09:13)
[2016-10-25] MEDS: FAMOTIDINE 20 MG TABLET PO SCH ×2 (09:13→21:38)
[2016-10-25] MEDS: SPIRONOLACTONE 25 MG TABLET PO SCH (09:14)
[2016-10-25] MEDS: ASPIRIN EC 325 MG TABLET PO SCH (09:14)
[2016-10-25] MEDS: PANTOPRAZOLE 40 MG TABLET PO SCH (09:14)
[2016-10-25] MEDS: ATENOLOL 50 MG TABLET PO SCH (09:14)
[2016-10-25] MEDS: MAGNESIUM OXIDE 400 MG TABLET PO SCH ×2 (09:14→21:38)
[2016-10-25] MEDS: amLODIPine 5 MG TABLET PO SCH ×2 (09:14→21:38)
[2016-10-25] MEDS: INSULIN REGULAR 100 UNIT/ML SUBCUT SCH ×4 (09:18→21:37)
--- NOTE | 2016-10-25 16:36 | Cardiology Progress Note ---
Constantin Spangler Lesley, ZARIA, am scribing for, and in the presence of, Ritchie Mccord MD 16:36. Assessment and Plan - Time spent with patient Time spent with patient: Greater than 30 minutes (Record review, assessment, and documentation) (1) Elevated troponin I level Status: Acute Assessment and plan: 76-year-old male, followed by Dr. Wilcox. History of CAD, status post CABG , admitted with respiratory insufficiency, suspected pneumonia. Minimally elevated cardiac biomarkers, PVCs, without chest pain or significant ischemic report changes. He was deemed low risk for ACS by Dr. Wilcox during his hospital stay. Currently, he is feeling better, still hypoxic. -PVCs, hypertension. Increase atenolol to 100 mg daily. -Continue aspirin, statin, amlodipine -If remains hypoxic, consider PE workup. 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 Wilcox Summary: Mr. Loera is a 76 WM, he has known CAD, prior CABG, former smoker(quit 1990), dyslipidemia, diabetes, obesity, anxiety, nonrheumatic mitral valve insufficiency, hypertension, bladder cancer. Within the last year he has had an ischemia workup which was negative. LVEF is normal, greater than 55%. The patient presented with coughing which was productive and dyspnea. Chest x-ray revealed cardiomegaly, CHF changes, pneumonia. He was admitted to telemetry due to elevated troponin, and treated for pneumonia. Troponin has remained dean zone, and denies angina. October 25, 2016: Patient sitting up in chair, denies shortness of breath and chest pain. He reports productive cough, and feels that he has difficulty mobilizing sputum at times. Vital signs stable, oxygen saturation 98% on 2 L nasal cannula. Sodium 135, other electrolytes unremarkable, creatinine 1.2. Continue antibiotics, will add incentive spirometry. IMPRESSION AND PLAN: 1. PNEUMONIA -continue antibiotics and oxygen as needed. Duo nebs and will add incentive spirometry. 2. ELEVATED TROPONIN LEVEL -Troponin remaining dean zone, unremarkable today. Denies complaints of angina. 3. CONGESTIVE HEART FAILURE -possibly diastolic, LVEF greater than 55%. 4. DIABETES TYPE 1 -continue plan of care, Accu-Cheks and SSI. 5. CAD -continue plan of care, and adjust accordingly. 6. HYPERTENSION -continue medications, adjust accordingly Exam (Progress Note) - Constitutional Vitals: Period Temp Pulse Resp BP Sys/Frederick Pulse Ox Last 24 Hr 96.3 F-98.2 F 60-80 16-18 103-156/46-79 92-98 Exam: General: No apparent distress. Pleasant and cooperative. Appears comfortable. HEENT: PERRL, normocephalic, atraumatic. Mucous membranes moist. No jaundice noted. Conjunctiva moist and clear, sclerae anicteric. Neck: No JVD/HJR, no thyromegaly or lymphadenopathy noted. No carotid bruit appreciated. Cardiac: Regular rate and rhythm. No murmur rub or gallop. PMI is nondisplaced. Lungs: Clear to auscultation without accessory muscle use to assist the respiratory pattern, diminished bases she is usually on the right. Oxygen in use via nasal cannula. Abdomen: Obese, soft, bowel sounds normoactive. Nontender and nondistended. No abdominal bruit or thrill noted. No masses noted. Musculoskeletal: No fluid collection. Full range of motion is noted, chronic pain to left lower leg and foot. Extremities: No clubbing, cyanosis noted. Trace edema noted bilateral lower extremities. Upper extremity pulses 2+. Lower extremity pulses 2+. Capillary refill less than 3 seconds. Skin: Warm and dry. No unusual lesions or rashes. No skin breakdown appreciated. Neuro: Awake, alert and oriented 3. Moves all extremities well without hemiparesis or paralysis. No essential tremor is appreciated. Result/EKG - Labs CBC & BMP: 10/24/16 04:46 10/25/16 03:45 Lab Results: I have reviewed the past 24 hour labs Labs: Laboratory Results - last 24 hr 10/24/16 10/24/16 10/24/16 07:32 11:54 16:02 Sodium Potassium Chloride Carbon Dioxide Anion Gap BUN Creatinine GFR Calculation BUN/Creatinine Ratio Glucose POC Glucose 298 H 290 H 362 H Calculated Osmolality Calcium Total Creatine Kinase CK-MB (CK-2) Troponin I 10/24/16 10/25/16 10/25/16 20:05 03:45 03:45 Sodium 135 L Potassium 4.6 Chloride 100 Carbon Dioxide 25 Anion Gap 14.6 BUN 26 H Creatinine 1.20 GFR Calculation 81 BUN/Creatinine Ratio 21.00 H Glucose 280 H POC Glucose 378 H Calculated Osmolality 284.1 Calcium 8.7 Total Creatine Kinase 166 CK-MB (CK-2) 3.8 H Troponin I 0.026 10/25/16 07:53 Sodium Potassium Chloride Carbon Dioxide Anion Gap BUN Creatinine GFR Calculation BUN/Creatinine Ratio Glucose POC Glucose 287 H Calculated Osmolality Calcium Total Creatine Kinase CK-MB (CK-2) Troponin I - Diagnostic Findings Procedure: Chest x-ray: report reviewed by me - EKG EKG results: interpreted by me, sinus rhythm Specialty Discharge - Follow Up or Referrals Follow up with: Marc Wilcox MD [Family Provider] - Suri Spangler Attila, MD, personally performed the services described in this documentation, ascribed by Meryl Killian NP in my presence, and it is both accurate and complete 636 .
[2016-10-25] MEDS: LEVOFLOXACIN INJ 750 MG in PREMIX 1 EACH IV SCH (17:17)
--- NOTE | 2016-10-25 17:17 | Hospitalist Progress Note ---
Assessment and Plan (1) Right middle lobe pneumonia Status: Acute Assessment and plan: Chest CT, continue Rocephin and Levaquin Current Visit: Yes (2) Diabetes mellitus Status: Chronic Assessment and plan: Blood sugars not well controlled switch Lantus to 20 units subcu twice daily Current Visit: Yes (3) Diastolic heart failure Status: Acute Assessment and plan: Continue losartan, chest CT, BNP normal Current Visit: Yes (4) Hypertension Status: Acute Assessment and plan: Not controlled, increase Cozaar 100 mg p.o. daily, continue atenolol Current Visit: Yes (5) COPD exacerbation Status: Acute Assessment and plan: Continue duo nebs, steroids, antibiotic Current Visit: Yes Hospitalist: Subjective Interval history: Patient is having some pain in his toe which is new. He is already on steroids for his COPD. He is not requiring oxygen his sat was 92% on room air after getting up and going to the bathroom. His breathing is a little bit better today but he still very diminished. Exam - Constitutional Vitals: Period Temp Pulse Resp BP Sys/Frederick Pulse Ox Last 24 Hr 96.3 F-98.1 F 59-80 16-18 103-158/46-79 92-98 Exam: Heart Rate-[RRR] Lungs-[diminished] GI-[+bs soft, NT] Ext-[no edema] Neuro [Motor 5/5], [alert and oriented times 3] psych [normal mood and affect] General [no acute distress] Results - Labs CBC & BMP: 10/24/16 04:46 10/25/16 03:45 Lab Results: I have reviewed the past 24 hour labs Labs: blood cx times 2 negative - Diagnostic Findings Procedure: Chest x-ray: report reviewed by me (CM, chf ) Specialty Discharge - Follow Up or Referrals Follow up with: Marc Wilcox MD [Family Provider] -
[2016-10-25] MEDS ORDERED: LOSARTAN 50 MG TABLET PO SCH (17:28)
[2016-10-25] MEDS: SERTRALINE 50 MG TABLET PO SCH (17:50)
[2016-10-25] MEDS: SIMVASTATIN 10 MG TABLET PO SCH (17:50)
--- NOTE | 2016-10-25 19:06 | CT Report ---
History: Shortness of breath. Abnormal chest x-ray Date: 10/25/2016 Study: CT chest without contrast Comparison exam: No previous chest CT available Spiral CT sections were obtained through the lungs without IV contrast. There is some hazy and nodular infiltrate in the right lower lobe. There are also some areas of scattered patchy and nodular infiltrate in both upper lobes. There is some atelectatic change in the right middle lobe. There is mild right-sided pleural effusion. There are some scattered changes of centrilobular emphysema of a mild degree. The patient is status post prior median sternotomy. There is mild right paratracheal and AP window lymphadenopathy with a largest lymph node measuring 12 mm short axis diameter in the lower right paratracheal area. There is no focal aneurysm of the thoracic aorta. There is prominent coronary artery calcification with involvement of the left main, left anterior descending, and left circumflex coronary arteries. There is no axillary lymphadenopathy. Spondylotic changes of spine are present. There is a rounded 18 mm fat density left adrenal nodule compatible with adenoma. Impression: Bilateral pulmonary infiltrates which are more suggestive of pneumonia than pulmonary edema. Clinical correlation is advised. Nonspecific mild mediastinal lymphadenopathy Left adrenal adenoma Coronary artery calcification The CT exam was performed using one or more of the following dose reduction techniques: Automated exposure control, adjustment of the mA and/or kV according to patient size, or use of iterative reconstruction technique. PROCEDURE INTERPRETED AT [facility] DEPARTMENT OF RADIOLOGY Final Report Signed by: Dr. Lakesha Ryan
--- NOTE | 2016-10-25 19:10 | Sleep Medicine Consult ---
Assessment and Plan (1) Unspecified sleep apnea Status: Acute Assessment and plan: He had prior sleep study that was negative for sleep apnea but I need to review his prior evaluation and see how long ago that was. If it was a long time ago and if he has had significant weight gain since the time of that evaluation, it may be worthwhile to consider reevaluation. I will set him up for sleep clinic follow-up after discharge so we can review with him his prior results and reassess need for evaluation. Thank you for this consult and the opportunity to participate in his care. Current Visit: Yes (2) Hypertension Status: Acute Assessment and plan: The prevalence rate for obstructive sleep apnea patients with hypertension is 35 %. That rate can be as high as 80% in patients who require 4 or more medications for blood pressure control. Current Visit: Yes (3) Diabetes mellitus Status: Chronic Assessment and plan: The prevalence rate for obstructive sleep apnea in patients with type 2 diabetes can be as high as 86%. Those patients with moderate to severe obstructive sleep apnea are at a greater risk for diabetic nephropathy and neuropathy. Compliance with CPAP therapy for these patients can lead to improvement in glycemic control and improvement in insulin sensitivity. Current Visit: Yes History of Present Illness Chief complaint: Sleep apnea History of present illness: Mr. Loera is a 76 year old male known to the sleep lab from previous sleep evaluation. He has had sleep evaluation in the past but did not have significant sleep apnea at that time by his report. I have not yet been able to review his prior studies to see when those studies were and what he actually had. He tells me that he had periodic limb movement disorder and that he remains on pramipexole therapy and currently takes 1.25 mg nightly. He is admitted now for right middle lobe pneumonia and apparently has some troponin elevation and there is a concern for a component of diastolic heart failure. He does have a history of hypertension and type 2 diabetes but is had that for years and both of those problems during his prior sleep evaluation. He denies any significant increase in snoring or changes in his sleep quality. He states that he does snore occasionally but is no worse than what it was before. He denies awakening from sleep short of breath. Home Medications Medication Instructions Recorded Confirmed Type Amlodipine Besylate 5 mg PO BID 10/24/14 10/23/16 History Atenolol 50 mg PO QAM 10/24/14 10/23/16 History Glimepiride 4 mg PO QAM 10/24/14 10/23/16 History Losartan [Cozaar] 50 mg PO QAM 10/24/14 10/23/16 History Sertraline [Zoloft] 100 mg PO DAILY W/SUPPER 10/24/14 10/23/16 History Simvastatin [Zocor] 10 mg PO DAILY W/SUPPER 10/24/14 10/23/16 History hydroCHLOROthiazide 25 mg PO QAM 10/24/14 10/23/16 History [Hydrochlorothiazide] Pramipexole [Mirapex] 1.25 mg PO BEDTIME 12/29/15 10/23/16 History Aspirin EC Tab 325 mg PO QAM 10/23/16 10/23/16 History Cholecalciferol (Vitamin D3) 2,000 unit PO QAM 10/23/16 10/23/16 History [Vitamin D3] Ferrous Sulfate 325 mg PO QAM 10/23/16 10/23/16 History Hydrocodone/Acetaminophen 1 tablet PO Q6H PRN 10/23/16 10/23/16 History [Hydrocodon-Acetaminophn 10-325] Magnesium Oxide 400 mg PO BID 10/23/16 10/23/16 History Metformin HCl [Metformin HCl ER] 1,000 mg PO BID 10/23/16 10/23/16 History Trazodone HCl 100 mg PO BEDTIME 10/23/16 10/23/16 History raNITIdine HCl [Ranitidine HCl] 300 mg PO BID 10/23/16 10/23/16 History Allergies Allergy/AdvReac Type Severity Reaction Status Date / Time fish oil Allergy HIVES Verified 10/23/16 14:46 iodine Allergy HIVES Verified 10/23/16 14:46 ORANGE JUICE Allergy Severe RASH Uncoded 04/08/16 06:07 SHRIMP Allergy Severe RASH Uncoded 04/08/16 06:07 Review of systems: Otherwise unremarkable from a sleep standpoint Exam (Pulmonay) H&P - Constitutional Vitals: Period Temp Pulse Resp BP Sys/Frederick Pulse Ox Last 24 Hr 96.3 F-98.1 F 59-80 16-18 103-161/46-79 91-98 Exam: He is alert and responsive in no acute distress. Pupils equal round reactive to light and accommodation. Extraocular movements intact. Oropharynx without class III Mallampati exam. Neck supple without adenopathy or thyromegaly. Chest with fair air movement no significant wheeze or rhonchi. Cardiac exam reveals a regular rhythm without murmur or gallop. Abdomen obese nontender without palpable hepatosplenomegaly or mass extremities are without clubbing, cyanosis, or edema. Neurologically, he is grossly intact. He moves all extremities with good strength. Medical,Surgical,& Family Hx - Medical History Cardio: History of: CAD, [place] Psychological: History of: Anxiety Disorders Neurology: No history of: Seizures HEENT: History of: Eye Problem (SQUAMOUS CELL LEFT EYE LESION) Endocrine: History of: Diabetes Mellitus (NIDDM) Rheumatology: History of;: Rheumatoid Arthritis Genitourinary: History of: Bladder Problem (CA) Gastrointestinal: History of: GERD Musculoskeletal: History of: Back/Neck Problems (treated at [facility]), Musculoskeletal Problems (right lower leg, restless legs) Other: History of: MRSA - Surgical History Cardiac Surgeries: Sugical HX of: Cardiac Catheterization, Cardiac Surgery ( CABG STENT OPEN GEART DR MARY OWEN) Thoracic Surgeries: Patient denies;: Organ Transplant HEENT Surgeries: Surgical HX of: Eye Surgery (EXCISION LEFT EYE WITH FROZEN SECTION) Abdominal Surgeries: Surgical HX of: Appendectomy, Cholecystectomy Reproductive Surgeries: Surgical HX of;: Cystoscopy Patient denies;: Genitourinary Surgery (TURB 04/02) Orthopedic Surgeries: Surgical HX of;: Orthopedic Surgery (right shoulder repair , arthrodesis left ankle BACK) - Family History Family History: Reports;: Family Diabetes (SON), Family Heart Disease (SON), Family Hypertension (SON) Denies;: Family Anesthesia Reaction, Family Cancer, Family Psychiatric Problems, Family Stroke - Social History Smoking Status: Former smoker Frequency of Alcohol Use: None Type of Drug Use: None Results - Labs CBC & BMP: 10/24/16 04:46 10/25/16 03:45 Lab Results: I have reviewed the past 24 hour labs Specialty Discharge - Follow Up or Referrals Follow up with: Marc Wilcox MD [Family Provider] -
[2016-10-25] MEDS: INSULIN GLARGINE 100 UNIT/ML SUBCUT SCH (21:37)
[2016-10-25] MEDS: ENOXAPARIN 40 MG/0.4 ML SYRINGE SUBCUT SCH (21:38)
[2016-10-25] MEDS: PRAMIPEXOLE 1 MG TABLET PO SCH (21:42)
[2016-10-25] MEDS: traZODone 50 MG TABLET PO SCH (21:43)
[2016-10-25] MEDS: PRAMIPEXOLE 0.25 MG TABLET PO SCH (21:45)
[2016-10-25] MEDS: cefTRIAXone 1,000 MG in SODIUM CHLORIDE 0.9% 100 ML IV SCH (22:22)
[2016-10-26] MEDS: ALBUTEROL/IPRATROPIUM 3 ML NEB RESP TX SCH ×4 (00:13→19:31)
[2016-10-26] MEDS: methylPREDNISolone SOD SUC 40 MG/1 ML VIAL IV SCH ×3 (00:14→16:12)
[2016-10-26 05:24] LABS: Calcium 8.6 MG/DL (8.5-10.1); Osmolality,Calculated 288.1 MOS/KG (273-304); Potassium 5.5 MMOL/L (3.5-5.1)
--- NOTE | 2016-10-26 08:02 | EKG Report ---
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
[2016-10-26] MEDS: FAMOTIDINE 20 MG TABLET PO SCH ×2 (08:49→22:06)
[2016-10-26] MEDS: ATENOLOL 100 MG TABLET PO SCH (08:49)
[2016-10-26] MEDS: MAGNESIUM OXIDE 400 MG TABLET PO SCH ×2 (08:49→22:05)
[2016-10-26] MEDS: ASPIRIN EC 325 MG TABLET PO SCH (08:49)
[2016-10-26] MEDS: PANTOPRAZOLE 40 MG TABLET PO SCH (08:49)
[2016-10-26] MEDS: amLODIPine 5 MG TABLET PO SCH ×2 (08:49→22:06)
[2016-10-26] MEDS: INSULIN GLARGINE 100 UNIT/ML SUBCUT SCH ×2 (08:50→22:04)
[2016-10-26] MEDS: INSULIN REGULAR 100 UNIT/ML SUBCUT SCH ×4 (08:50→22:04)
--- NOTE | 2016-10-26 09:40 | Nuclear Medicine Report ---
Nuclear medicine ventilation/perfusion scan Indication: Shortness of breath Findings: Ventilation scan: The patient received 40.0 mCi of 90 9M technetium DTPA aerosolized. There is normal distribution of radiotracer in both lungs. Perfusion scan: Patient received 5.0 mCi of 90 9M technetium MAA intravenously. There is normal in distribution of radiotracer in both lungs without evidence of segmental or greater defects. Impression: Normal nuclear medicine ventilation perfusion scan. This indicates low probability for pulmonary embolism. PROCEDURE INTERPRETED AT [facility] DEPARTMENT OF RADIOLOGY Final Report Signed by: Dr. Kai Quintanilla
--- NOTE | 2016-10-26 10:32 | Physician Query Form ---
CLICK EDIT DOCUMENT TO SELECT QUERY ANSWER --> OK --> SIGN Huyen Maria RN, CCDS Certified Clinical Forensic Technician W) [phone] (f) [phone] [email or web address] PROVIDERS: Make your selection(s) from the choices in EACH section by typing an "x" and enter comments in the comment section. Please use your independent medical judgment in providing your response. This request does not imply that any particular answer is desired or expected. CLINICAL INDICATORS: (Providers should not edit this section) The below diagnosis was documented in the record, but is not consistently noted in subsequent documentation. The medical record indicates that the patient was admitted with COPD exacerbation, Respiratory 16-20, Treated with 2-3 Liters per NC, ER Vitals RR of 17 with sat's 100%, per ER note: "No respiratory distress", and later on the : "appears to have respiratory failure on account of COPD exacerbation". As the attending MD can you please clarify if the "respiratory failure" was _? Diagnosis: Respiratory Failure Please clarify the following: ( ) The above diagnosis was monitored, evaluated, and/or treated and is a confirmed diagnosis ( ) The above diagnosis was ruled out ( ) The above diagnosis is still a likely, suspected, probable diagnosis ( x) Other, please specify: dont know too early to tell ( ) Clinically unable to determine COMMENTS: PLEASE ALSO DOCUMENT RESPONSE IN PROGRESS NOTES AND/OR DISCHARGE SUMMARY Use of terms such as suspected, likely, or probable (associated with a specific diagnosis that is being evaluated, monitored, or treated as if it exists) are acceptable and can be restated in the discharge summary if not ruled out. MTDD
[2016-10-26] MEDS ORDERED: hydrALAZINE 20 MG/1 ML VIAL IV PRN ×2 (12:45→16:22)
[2016-10-26] MEDS: hydrALAZINE 25 MG TABLET PO SCH ×2 (16:11→22:06)
[2016-10-26] MEDS: guaiFENesin 200 MG/10 ML UDCUP PO PRN (16:11)
[2016-10-26] MEDS: SIMVASTATIN 10 MG TABLET PO SCH (16:11)
[2016-10-26] MEDS: SERTRALINE 50 MG TABLET PO SCH (16:11)
[2016-10-26] MEDS: LEVOFLOXACIN INJ 750 MG in PREMIX 1 EACH IV SCH (16:12)
[2016-10-26] MEDS ORDERED: SODIUM POLYSTYRENE SULFATE 15 GM/60 ML BOTTLE PO ONE (16:18)
--- NOTE | 2016-10-26 16:22 | Hospitalist Progress Note ---
Assessment and Plan (1) Pneumonia Status: Acute Assessment and plan: Blood cultures negative no growth continue Rocephin and azithromycin, CT of the chest confirms bilateral pneumonia patient still not requiring oxygen today. Home soon. Current Visit: Yes (2) Diabetes mellitus Status: Chronic Assessment and plan: Blood sugars still not controlled despite increasing Lantus will stop IV steroids and give him p.o. prednisone Current Visit: Yes (3) Diastolic heart failure Status: Acute Assessment and plan: Hold losartan due to hyperkalemia Current Visit: Yes (4) Hypertension Status: Acute Assessment and plan: Not controlled, change to atenolol 100 mg p.o. daily, add hydrochlorothiazide 25 mg p.o. daily, hydralazine 25 mg p.o. 3 times daily Current Visit: Yes (5) COPD exacerbation Status: Acute Assessment and plan: Continue duo nebs, decrease steroids Current Visit: Yes (6) Hyperkalemia Status: Acute Assessment and plan: 1 dose of Kayexalate, hold losartan Current Visit: Yes Hospitalist: Subjective Interval history: Patient feels about the same as he did yesterday. No significant shortness of breath today. Chest CT yesterday confirmed bilateral pneumonia. Exam - Constitutional Vitals: Period Temp Pulse Resp BP Sys/Frederick Pulse Ox Last 24 Hr 97.7 F-98.2 F 56-83 16-24 168-210/77-110 87-98 Exam: Heart Rate-[RRR] Lungs-[diminished but clear, better air movement yesterday] GI-[+bs soft, NT] Ext-[no edema] Neuro [Motor 5/5], [alert and oriented times 3] psych [normal mood and affect] General [no acute distress] Results - Labs CBC & BMP: 10/24/16 04:46 10/26/16 04:31 Lab Results: I have reviewed the past 24 hour labs Labs: Blood cultures 2 negative no growth - Diagnostic Findings Procedure: CT - chest: report reviewed by me (Bilateral pulmonary infiltrates), X-ray: report reviewed by me (Normal VQ scan) Specialty Discharge - Follow Up or Referrals Follow up with: Marc Wilcox MD [Family Provider] -
[2016-10-26] MEDS: hydroCHLOROthiazide 25 MG TABLET PO SCH (16:37)
--- NOTE | 2016-10-26 20:36 | Cardiology Progress Note ---
Constantin Spangler Lesley, ZARIA, am scribing for, and in the presence of, Ritchie Mccord MD 20:34. 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 Wilcox Summary: Mr. Loera is a 76 WM, he has known CAD, prior CABG, former smoker(quit 1990), dyslipidemia, diabetes, obesity, anxiety, nonrheumatic mitral valve insufficiency, hypertension, bladder cancer. Within the last year he has had an ischemia workup which was negative. LVEF is normal, greater than 55%. The patient presented with coughing which was productive and dyspnea. Chest x-ray revealed cardiomegaly, CHF changes, pneumonia. He was admitted to telemetry due to elevated troponin, and treated for pneumonia. Troponin has remained dean zone, and denies angina. October 25, 2016: Patient sitting up in chair, denies shortness of breath and chest pain. He reports productive cough, and feels that he has difficulty mobilizing sputum at times. Vital signs stable, oxygen saturation 98% on 2 L nasal cannula. Sodium 135, other electrolytes unremarkable, creatinine 1.2. Continue antibiotics per hospitalist. 2016: Hypertension uncontrolled, will add as needed hydralazine. Heart rate remains in the 60s-80s sinus rhythm on EKG. Oxygen saturation this morning 90% on 2 L nasal cannula. VQ lung scan indicates low probability for pulmonary embolism and chest CT negative. Denies chest pain and shortness of breath. IMPRESSION AND PLAN: 1. ELEVATED TROPONIN LEVEL -Troponin was in dean zone. Denies complaints of angina. Suspicion for ACS is low, remains hypoxic - chest CT showed b/l PNA. VQ scan low prob for PE. 2. CAD -continue aspirin, statin, amlodipine. 3. HYPERTENSION better controlled with BB, CCB, added hydralazine. 4. Hyperkalemia. ARB on hold. Recheck Exam (Progress Note) - Constitutional Vitals: Period Temp Pulse Resp BP Sys/Frederick Pulse Ox Last 24 Hr 97.7 F-98.2 F 59-83 16-20 161-210/69-110 90-98 Exam: General: No apparent distress. Pleasant and cooperative. Appears comfortable. HEENT: PERRL, normocephalic, atraumatic. Mucous membranes moist. No jaundice noted. Conjunctiva moist and clear, sclerae anicteric. Neck: No JVD/HJR, no thyromegaly or lymphadenopathy noted. No carotid bruit appreciated. Cardiac: Regular rate and rhythm. No murmur rub or gallop. PMI is nondisplaced. Lungs: Clear to auscultation without accessory muscle use to assist the respiratory pattern, diminished bases she is usually on the right. Oxygen in use via nasal cannula. Abdomen: Obese, soft, bowel sounds normoactive. Nontender and nondistended. No abdominal bruit or thrill noted. No masses noted. Musculoskeletal: No fluid collection. Full range of motion is noted, chronic pain to left lower leg and foot. Extremities: No clubbing, cyanosis noted. Trace edema noted bilateral lower extremities. Upper extremity pulses 2+. Lower extremity pulses 2+. Capillary refill less than 3 seconds. Skin: Warm and dry. No unusual lesions or rashes. No skin breakdown appreciated. Neuro: Awake, alert and oriented 3. Moves all extremities well without hemiparesis or paralysis. No essential tremor is appreciated. Result/EKG - Labs CBC & BMP: 10/24/16 04:46 10/26/16 04:31 Lab Results: I have reviewed the past 24 hour labs Labs: Laboratory Results - last 24 hr 10/25/16 10/25/16 10/26/16 16:21 20:42 04:31 Sodium 135 L Potassium 5.5 H Chloride 101 Carbon Dioxide 26 Anion Gap 13.5 BUN 27 H Creatinine 1.20 GFR Calculation 81 BUN/Creatinine Ratio 22.00 H Glucose 352 H POC Glucose 383 H 374 H Calculated Osmolality 288.1 Calcium 8.6 10/26/16 10/26/16 08:03 11:55 Sodium Potassium Chloride Carbon Dioxide Anion Gap BUN Creatinine GFR Calculation BUN/Creatinine Ratio Glucose POC Glucose 347 H 356 H Calculated Osmolality Calcium - Diagnostic Findings Procedure: CT - chest: report reviewed by me - EKG EKG results: interpreted by me, sinus rhythm Specialty Discharge - Follow Up or Referrals Follow up with: Marc Wilcox MD [Family Provider] - Suri Spangler Attila, MD, personally performed the services described in this documentation, ascribed by Meryl Killian NP in my presence, and it is both accurate and complete .
[2016-10-26] MEDS: ENOXAPARIN 40 MG/0.4 ML SYRINGE SUBCUT SCH (22:04)
[2016-10-26] MEDS: PRAMIPEXOLE 1 MG TABLET PO SCH (22:05)
[2016-10-26] MEDS: traZODone 50 MG TABLET PO SCH (22:06)
[2016-10-26] MEDS: cefTRIAXone 1,000 MG in SODIUM CHLORIDE 0.9% 100 ML IV SCH (22:07)
[2016-10-26] MEDS: PRAMIPEXOLE 0.25 MG TABLET PO SCH (23:03)
[2016-10-26] MEDS: ONDANSETRON 4 MG/2 ML VIAL IV PRN (23:09)
[2016-10-27] MEDS: ALBUTEROL/IPRATROPIUM 3 ML NEB RESP TX SCH ×2 (00:18→07:24)
[2016-10-27 04:39] LABS: Calcium 8.7 MG/DL (8.5-10.1); Osmolality,Calculated 286.7 MOS/KG (273-304); Potassium 4.6 MMOL/L (3.5-5.1)
[2016-10-27 05:19] LABS: Risk Ratio 3.03
--- NOTE | 2016-10-27 07:33 | EKG Report ---
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
[2016-10-27] MEDS ORDERED: predniSONE 20 MG TABLET PO SCH (09:00)
--- NOTE | 2016-10-27 09:53 | Discharge Summary ---
<Mohit Estrada - Last Filed: 10/27/16 10:42> Hospital Course - Hospital Course Hospital Course: Mr. Loera is a 76-year-old male with a history of GERD, hypertension, COPD, diabetes, hyperlipidemia, RA, bladder cancer, chronic neck and back pain, depression and anxiety that presented to the ED on 10/23 for evaluation of vomiting and shortness of breath. Patient reported that the symptoms had an onset 4 days prior to presentation. Initially the patient experienced a cough that became productive with discolored sputum. That progressed to patient experiencing wheezing, nasal congestion and drainage, shortness of breath, nausea, vomiting and loose stools. In the ED the patient was noted to be experiencing respiratory difficulty. Labs were obtained and remarkable labs included sodium 131, glucose 195, lactic acid 3.2, troponin 0.124. Pt's inital CXR revealed pneumonia (later CT revealed bilateral pneumonia). Patient had a VQ lung scan which was negative for PE and his venous Dopplers were negative for DVT. Pt. was admitted for treatment of respiratory failure secondary to COPD exacerbation. He was started on IV antibiotics with Rocephin and azithromycin, steroids, and breathing treatments. Pt. was also treated for uncontrolled hypertension with several agents (atenolol, hctz, and hydralazine) . Serial cardiac enzymes were obtained. Cardiology was consulted to evaluate. IV lasix was used to diurese. Darklight Inspector was concerned about possible sleep apnea and a sleep consult was placed. Pt. was noted to have a prior sleep study that was negative but he was set up for follow up sleep clinic visit after discharge. Pt's condition has stablized and he is able to be discharged home today with follow-up with Dr. Bray, Dr. Bender, Dr. Wilcox and Dr. Holguin. Patient will have oxygen and a nebulizer machine for home. Patient will be discharged on Levaquin with a steroid taper. Patient seen and examined. Hospital course reviewed and edited. Specialty Discharge - Follow Up or Referrals Follow up with: Marc Wilcox MD [Family Provider] - 11/08/16 9:10 am Lauro Bender III., MD [Primary Care Provider] - 11/02/16 2:00 pm Vira Bray MD [Physician] - 11/09/16 9:30 am Ollie Holguin MD [Physician] - 11/22/16 9:30 am Discharge Plan - Discharge Data Disposition: Home Health Service - Discharge Medications New guaiFENesin LIQUID [Robitussin] 10 ml PO Q4H PRN PRN Reason: Cough hydrALAZINE TAB [Apresoline Tab] 25 mg PO TID #90 tablet Levofloxacin Tab [Levaquin Tab] 750 mg PO DAILY #7 tablet predniSONE TAB [PredniSONE] 20 mg PO DAILY #10 tablet Albuterol/Ipratropium Neb [Duoneb] 3 ml RESP TX TID #90 tablet Continue Amlodipine Besylate 5 mg PO BID Simvastatin [Zocor] 10 mg PO DAILY W/SUPPER hydroCHLOROthiazide [Hydrochlorothiazide] 25 mg PO QAM Sertraline [Zoloft] 100 mg PO DAILY W/SUPPER Losartan [Cozaar] 50 mg PO QAM Pramipexole [Mirapex] 1.25 mg PO BEDTIME Ferrous Sulfate 325 mg PO QAM Metformin HCl [Metformin HCl ER] 1,000 mg PO BID raNITIdine HCl [Ranitidine HCl] 300 mg PO BID Trazodone HCl 100 mg PO BEDTIME Aspirin EC Tab 325 mg PO QAM Hydrocodone/Acetaminophen [Hydrocodon-Acetaminophn 10-325] 1 tablet PO Q6H PRN #30 tablet PRN Reason: Pain Cholecalciferol (Vitamin D3) [Vitamin D3] 2,000 unit PO QAM Magnesium Oxide 400 mg PO BID Changed Glimepiride 4 mg PO BID #60 tablet Atenolol 100 mg PO QAM #60 tablet - Follow Up or Referral Follow Up: Marc Wilcox MD [Family Provider] - 11/08/16 9:10 am Lauro Bender III., MD [Primary Care Provider] - 11/02/16 2:00 pm Vira Bray MD [Physician] - 11/09/16 9:30 am Ollie Holguin MD [Physician] - 11/22/16 9:30 am - Forms/Instructions Instructions: Chronic Obstructive Pulmonary Disease (GEN), Community-acquired Pneumonia (GEN) Exam - Constitutional Vitals: Period Temp Pulse Resp BP Sys/Frederick Pulse Ox Last 24 Hr 97.7 F-98.6 F 54-71 18-24 119-186/70-97 87-97 Discharge Results Procedures and tests throughout hospitalization: Pending Orders 10/23/16 16:15 Blood Culture Stat Labs on day of discharge: Labs from last 24 hours 10/27/16 10/27/16 10/27/16 07:44 03:05 03:05 Sodium 138 Potassium 4.6 Chloride 100 Carbon Dioxide 31 Anion Gap 11.6 BUN 25 H Creatinine 1.20 GFR Calculation 82 BUN/Creatinine Ratio 20.00 Glucose 244 H POC Glucose 188 H Calculated Osmolality 286.7 Calcium 8.7 Triglycerides 145 Cholesterol 97 LDL Cholesterol 51.0 VLDL Cholesterol 29.0 HDL Cholesterol 32 L Heart Disease Risk Ratio 3.03 10/26/16 10/26/16 10/26/16 19:16 15:36 11:55 Sodium Potassium Chloride Carbon Dioxide Anion Gap BUN Creatinine GFR Calculation BUN/Creatinine Ratio Glucose POC Glucose 367 H 388 H 356 H Calculated Osmolality Calcium Triglycerides Cholesterol LDL Cholesterol VLDL Cholesterol HDL Cholesterol Heart Disease Risk Ratio Preliminary micro results at discharge 10/23/16 16:15 Blood Culture - Preliminary Blood No growth at 3 days 10/23/16 16:15 Blood Culture - Preliminary Blood No growth at 3 days DS: Provider Date of admission: 10/23/16 16:34 Primary care physician: Lauro Bender I Attending physician on admission: Steve Edward MD Consults: 10/23/16 16:39 Consult to Pulmonary Rehabilitation [CONS] Routine Reason for Pulmonary Rehabilitation: COPD 10/23/16 16:40 Consult to Physician [CONS] Routine Comment: Consulting Provider: Prema Mobley When should Consulting Provider be notified: In am Consult to Specialist Group: Pulmonology 10/23/16 19:16 Consult to Physician [CONS] Routine Comment: Consulting Provider: Prema Mobley Consult to Specialist Group: Cardiology When should Consulting Provider be notified: In am 10/25/16 17:27 Consult to Sleep Center [CONS] Routine Reason for Sleep Center: Sleep Center Physician Consult Comment: katherin 10/27/16 09:40 Consult to Case Mgmt/Social Srvs [CONS] Routine Reason for Case Mgmt/Social Srvs: Home Health Equipment Consult Comment: oxygen and nebulizer, nurse Discharging clinician: Mohit Estrada NP <Venita Green - Last Filed: 10/27/16 15:57> Hospital Course - Time spent with patient Time with patient DS: Greater than 30 minutes (45 min) Diagnosis - Discharge Diagnosis (1) Pneumonia Status: Acute (2) Diabetes mellitus Status: Chronic (3) Diastolic heart failure Status: Acute (4) Hypertension Status: Chronic (5) COPD exacerbation Status: Acute (6) Hyperkalemia Status: Acute Discharge Plan - Discharge Data Condition at Discharge: Stable Discharge Diet: diabetic diet Activity: resume usual activities as tolerated, wear oxygen at all times Hygiene: no restrictions Weight Bearing at Discharge: full weight bearing Driving: not until seen by doctor Contact your physician if you experience:: fever over 101 Exam - Constitutional General appearance: no acute distress, over weight - Respiratory Respiratory exam: Present: clear to auscultation bilaterally, decreased breath sounds - Cardiovascular Cardiovascular exam: Present: regular rate and rhythm. Absent: systolic murmur - GI/Abdominal GI/Abdominal exam: Present: normal bowel sounds, soft - Extremities Exam Extremities exam: Present: normal inspection, normal capillary refill - Neurological Exam Neurological exam: Present: alert, oriented X3
[2016-10-27] MEDS: ATENOLOL 100 MG TABLET PO SCH (10:04)
[2016-10-27] MEDS: hydrALAZINE 25 MG TABLET PO SCH (10:14)
[2016-10-27] MEDS: hydroCHLOROthiazide 25 MG TABLET PO SCH (10:16)
[2016-10-27] MEDS: ASPIRIN EC 325 MG TABLET PO SCH (10:16)
[2016-10-27] MEDS: INSULIN GLARGINE 100 UNIT/ML SUBCUT SCH (10:17)
[2016-10-27] MEDS: MAGNESIUM OXIDE 400 MG TABLET PO SCH (10:20)
[2016-10-27] MEDS: amLODIPine 5 MG TABLET PO SCH (10:20)
[2016-10-27] MEDS: FAMOTIDINE 20 MG TABLET PO SCH (10:21)
[2016-10-27] MEDS: PANTOPRAZOLE 40 MG TABLET PO SCH (10:22)
[2016-10-27] MEDS: INSULIN REGULAR 100 UNIT/ML SUBCUT SCH ×2 (11:23→12:48)
[2016-10-27 11:29] VITALS: BP 150/70
--- NOTE | 2016-10-27 18:24 | Cardiology Progress Note ---
Constantin Spangler Lesley, ZARIA, am scribing for, and in the presence of, Ritchie Mccord MD 18:23. Assessment and Plan - Time spent with patient Time spent with patient: Less than 30 minutes (Record review, assessment, documentation) (1) Elevated troponin I level Status: Resolved Assessment and plan: SEE PLAN LISTED BELOW (2) Right middle lobe pneumonia Status: Acute Assessment and plan: SEE PLAN LISTED BELOW (3) Diabetes mellitus type 1 Status: Chronic Assessment and plan: SEE PLAN LISTED BELOW (4) Atherosclerotic cardiovascular disease Status: Chronic Assessment and plan: SEE PLAN LISTED BELOW (5) Hypertension Status: Chronic Assessment and plan: SEE PLAN LISTED BELOW Cardiology - PN: Subj Interval history: MANAGER OF SELECTION AND ASSESSMENT: Dr. Wilcox Summary: Mr. Loera is a 76 WM, he has known CAD, prior CABG, former smoker(quit 1990), dyslipidemia, diabetes, obesity, anxiety, nonrheumatic mitral valve insufficiency, hypertension, bladder cancer. Within the last year he has had an ischemia workup which was negative. LVEF is normal, greater than 55%. The patient presented with coughing which was productive and dyspnea. Chest x-ray revealed cardiomegaly, CHF changes, pneumonia. He was admitted to telemetry due to elevated troponin, and treated for pneumonia. Troponin has remained dean zone, and denies angina. Uncontrolled hypertension treated with hydralazine. October 25, 2016: Patient sitting up in chair, denies shortness of breath and chest pain. He reports productive cough, and feels that he has difficulty mobilizing sputum at times. Vital signs stable, oxygen saturation 98% on 2 L nasal cannula. Sodium 135, other electrolytes unremarkable, creatinine 1.2. Continue antibiotics per hospitalist. 2016: Hypertension uncontrolled, will add as needed hydralazine. Heart rate remains in the 60s-80s sinus rhythm on EKG. Oxygen saturation this morning 90% on 2 L nasal cannula. VQ lung scan indicates low probability for pulmonary embolism and chest CT negative. Denies chest pain and shortness of breath. 2016: Patient did well overnight. Hypertension better controlled. Oxygen saturation 95% on 2 L nasal cannula today. Patient denies chest pain or shortness of breath. Patient will be discharged home today and may follow up with Dr. Wilcox at [facility] clinic in 2-4 weeks. Fasting lipid panel triglycerides 145, cholesterol 97, LDL 51, HDL 32. The patient will need an EKG, BMP with mag prior to that appointment. IMPRESSION AND PLAN: 1. ELEVATED TROPONIN LEVEL -Troponin was in dean zone. Denies complaints of angina. Suspicion for ACS is low, remains hypoxic - chest CT showed b/l PNA. VQ scan low prob for PE. 2. CAD -continue aspirin, statin, amlodipine. 3. HYPERTENSION - better controlled with BB, CCB, added hydralazine. 4. HYPERKALEMIA - resolved, specimen possibly hemolyzed. 5. DYSLIPIDEMIA -FLP checked today, continue Zocor 10 mg p.o. nightly. FU with dr. Wilcox Exam (Progress Note) - Constitutional Vitals: Period Temp Pulse Resp BP Sys/Frederick Pulse Ox Last 24 Hr 97.7 F-98.6 F 54-71 18-24 119-186/70-97 87-97 Exam: General: No apparent distress. Pleasant and cooperative. Appears comfortable. HEENT: PERRL, normocephalic, atraumatic. Mucous membranes moist. No jaundice noted. Conjunctiva moist and clear, sclerae anicteric. Neck: No JVD/HJR, no thyromegaly or lymphadenopathy noted. No carotid bruit appreciated. Cardiac: Regular rate and rhythm. No murmur rub or gallop. PMI is nondisplaced. Lungs: Clear to auscultation without accessory muscle use to assist the respiratory pattern, diminished bases she is usually on the right. Oxygen in use via nasal cannula. Abdomen: Obese, soft, bowel sounds normoactive. Nontender and nondistended. No abdominal bruit or thrill noted. No masses noted. Musculoskeletal: No fluid collection. Full range of motion is noted, chronic pain to left lower leg and foot. Extremities: No clubbing, cyanosis noted. Trace edema noted bilateral lower extremities. Upper extremity pulses 2+. Lower extremity pulses 2+. Capillary refill less than 3 seconds. Skin: Warm and dry. No unusual lesions or rashes. No skin breakdown appreciated. Neuro: Awake, alert and oriented 3. Moves all extremities well without hemiparesis or paralysis. No essential tremor is appreciated. Result/EKG - Labs CBC & BMP: 10/24/16 04:46 10/27/16 03:05 Lab Results: I have reviewed the past 24 hour labs Labs: Laboratory Results - last 24 hr 10/26/16 10/26/16 10/26/16 11:55 15:36 19:16 Sodium Potassium Chloride Carbon Dioxide Anion Gap BUN Creatinine GFR Calculation BUN/Creatinine Ratio Glucose POC Glucose 356 H 388 H 367 H Calculated Osmolality Calcium Triglycerides Cholesterol LDL Cholesterol VLDL Cholesterol HDL Cholesterol Heart Disease Risk Ratio 10/27/16 10/27/16 10/27/16 03:05 03:05 07:44 Sodium 138 Potassium 4.6 Chloride 100 Carbon Dioxide 31 Anion Gap 11.6 BUN 25 H Creatinine 1.20 GFR Calculation 82 BUN/Creatinine Ratio 20.00 Glucose 244 H POC Glucose 188 H Calculated Osmolality 286.7 Calcium 8.7 Triglycerides 145 Cholesterol 97 LDL Cholesterol 51.0 VLDL Cholesterol 29.0 HDL Cholesterol 32 L Heart Disease Risk Ratio 3.03 - EKG EKG results: interpreted by me EKG shows: bradycardia Specialty Discharge - Follow Up or Referrals Follow up with: Marc Wilcox MD [Family Provider] - 11/08/16 9:10 am Lauro Bender III., MD [Primary Care Provider] - 11/02/16 2:00 pm Vira Bray MD [Physician] - 11/09/16 9:30 am Ollie Holguin MD [Physician] - 11/22/16 9:30 am ISuri Attila, MD, personally performed the services described in this documentation, ascribed by Meryl Killian NP in my presence, and it is both accurate and complete [id number] .
== END 2016-10-27 14:15 | disposition home health service (06) | DRG 190 ==
LOC: N.ED 14:39 → SUATTDRO 16:34 → N.EDINP 16:34 → N.TELEN 18:11
PROVIDERS: ADMIT Internal Medicine; ATTEND Internal Medicine

== ENCOUNTER 2017-02-26 17:55 | Inpatient (IN) ==
[2017-02-26] MEDS ORDERED: ALBUTEROL/IPRATROPIUM 3 ML NEB RESP TX STA (18:31)
[2017-02-26] MEDS ORDERED: ONDANSETRON 4 MG/2 ML VIAL IV STA (18:42)
[2017-02-26] MEDS ORDERED: ONDANSETRON 4 MG/2 ML VIAL ONE (18:43)
[2017-02-26 18:50] LABS: Basophils % 0.6 % (0.0-0.8); Eosinophils # 0.4 10*3/uL (0.0-0.87); Eosinophils % 5.6 % (0.00-10.9); Hemoglobin 12.5 GM/DL (14.0-18.0); Immature Granulocytes % 0.4 %; Immature Granulocytes Absolute 0.03 #; Lymphocytes # 1.7 10*3/uL (1.4-4.0); Lymphocytes % 23.4 % (21.2-54.2); Mean Corpuscular HGB Conc 33.8 GM/DL (32-36); Mean Corpuscular Hemoglobin 30 PG (27-34); Mean Corpuscular Volume 88.5 FL (87-102); Mean Platelet Volume 10.6 FL (9.6-12.0); Monocytes # 0.6 10*3/uL (0.11-0.8); Monocytes % 8.3 % (1.7-12.7); Neutrophils # 4.4 10*3/uL (1.4-7.4); Neutrophils % 61.7 % (38.7-73.9); Platelet Count 197 T/CUMM (130-400); Red Blood Count 4.18 MC/CUMM (3.8-5.5); Red Cell Distribution Width 14.4 % (9.3-17.3); White Blood Count 7.2 T/CUMM (4-12)
[2017-02-26 18:58] LABS: Alanine Aminotransferase 26 U/L (16-61); Albumin 3.5 G/DL (3.4-5.0); Alkaline Phosphatase 57 U/L (45-117); Aspartate Amino Transferase 17 U/L (0-37); Bilirubin,Total < 0.39 MG/DL (0.2-1.0); Blood Urea Nitrogen 25 MG/DL (7-18); Calcium 8.6 MG/DL (8.5-10.1); Glucose 287 MG/DL (74-106); Osmolality,Calculated 283.1 MOS/KG (273-304); Potassium 4.6 MMOL/L (3.5-5.1); Sodium 135 MMOL/L (136-145); Total Protein 7.1 G/DL (6.4-8.3); Troponin I Only < 0.015 NG/ML (0.00-0.045)
[2017-02-26 19:01] LABS: PT Patient Result 10.4 SECS
[2017-02-26] MEDS ORDERED: cefTRIAXone 1,000 MG in SODIUM CHLORIDE 0.9% 100 ML IV STA (19:48)
[2017-02-26] MEDS ORDERED: AZITHROMYCIN INJ 500 MG in SODIUM CHLORIDE 0.9% 250 ML IV STA (19:48)
[2017-02-26] MEDS ORDERED: cefTRIAXone 1,000 MG VIAL ONE (19:55)
[2017-02-26] MEDS ORDERED: AZITHROMYCIN 500 MG VIAL IV ONE (20:36)
[2017-02-26] MEDS ORDERED: ONDANSETRON 4 MG/2 ML VIAL IV PRN (21:36)
[2017-02-26] MEDS ORDERED: GLUCAGON 1 MG VIAL IM PRN (21:36)
[2017-02-26] MEDS ORDERED: DEXTROSE 50% 25 GM/50 ML VIAL IV PRN (21:36)
[2017-02-26] MEDS ORDERED: ALBUTEROL/IPRATROPIUM 3 ML NEB RESP TX PRN (21:36)
[2017-02-26] MEDS: INSULIN REGULAR 100 UNIT/ML SUBCUT SCH (22:55)
[2017-02-26] MEDS: SODIUM CHLORIDE 0.9% 1,000 ML IV SCH (22:56)
[2017-02-26] MEDS: PRAMIPEXOLE 0.25 MG TABLET PO SCH (23:21)
[2017-02-26] MEDS: SERTRALINE 50 MG TABLET PO SCH (23:22)
[2017-02-26] MEDS: DOCUSATE SODIUM 100 MG CAPSULE PO SCH (23:22)
[2017-02-26] MEDS: SIMVASTATIN 10 MG TABLET PO SCH (23:22)
[2017-02-26] MEDS: ENOXAPARIN 40 MG/0.4 ML SYRINGE SUBCUT SCH (23:23)
[2017-02-27] MEDS: ALBUTEROL/IPRATROPIUM 3 ML NEB RESP TX SCH ×4 (00:20→20:04)
[2017-02-27] MEDS: MORPHINE 2 MG/1 ML SYRINGE IV PRN ×2 (01:10→20:25)
[2017-02-27 06:46] LABS: Risk Ratio 3.06; VLDL CHOLESTEROL 59.6 MG/DL
[2017-02-27] MEDS: INSULIN REGULAR 100 UNIT/ML SUBCUT SCH ×4 (08:41→21:44)
[2017-02-27] MEDS: GLIMEPIRIDE 4 MG TABLET PO SCH ×2 (08:43→20:27)
[2017-02-27] MEDS: FERROUS SULFATE 325 MG TABLET PO SCH (08:43)
[2017-02-27] MEDS: DOCUSATE SODIUM 100 MG CAPSULE PO SCH ×2 (08:43→20:27)
[2017-02-27] MEDS: hydroCHLOROthiazide 25 MG TABLET PO SCH (08:43)
[2017-02-27] MEDS: ASPIRIN EC 325 MG TABLET PO SCH (08:43)
[2017-02-27] MEDS: LOSARTAN 50 MG TABLET PO SCH (08:43)
[2017-02-27] MEDS: PANTOPRAZOLE 40 MG TABLET PO SCH (08:44)
[2017-02-27] MEDS: amLODIPine 5 MG TABLET PO SCH ×2 (08:44→20:27)
[2017-02-27] MEDS: MAGNESIUM OXIDE 400 MG TABLET PO SCH ×2 (08:44→20:27)
[2017-02-27] MEDS: CHOLECALCIFEROL 1,000 UNIT TABLET PO SCH (08:44)
[2017-02-27] MEDS: FAMOTIDINE 20 MG TABLET PO SCH (08:44)
[2017-02-27] MEDS: ATENOLOL 50 MG TABLET PO SCH (08:44)
[2017-02-27] MEDS: cefTRIAXone 1,000 MG in SYRINGE 1 EACH IV SCH ×2 (08:45→21:43)
[2017-02-27] MEDS: SODIUM CHLORIDE 0.9% 1,000 ML IV SCH (11:40)
[2017-02-27] MEDS: AZITHROMYCIN INJ 500 MG in SODIUM CHLORIDE 0.9% 250 ML IV SCH (20:25)
[2017-02-27] MEDS: PRAMIPEXOLE 0.25 MG TABLET PO SCH (20:26)
[2017-02-27] MEDS: SIMVASTATIN 10 MG TABLET PO SCH (20:27)
[2017-02-27] MEDS: traZODone 50 MG TABLET PO SCH (20:27)
[2017-02-27] MEDS ORDERED: MORPHINE 10 MG/1 ML VIAL IV PRN (20:30)
[2017-02-27] MEDS: PRAMIPEXOLE 1 MG TABLET PO SCH (21:09)
[2017-02-27] MEDS: SERTRALINE 50 MG TABLET PO SCH (21:43)
[2017-02-27] MEDS: ENOXAPARIN 40 MG/0.4 ML SYRINGE SUBCUT SCH (21:43)
[2017-02-28] MEDS: ALBUTEROL/IPRATROPIUM 3 ML NEB RESP TX SCH ×4 (00:42→20:16)
[2017-02-28] MEDS: SODIUM CHLORIDE 0.9% 1,000 ML IV SCH ×2 (02:00→17:19)
[2017-02-28 03:45] LABS: ABG Base Excess -0.1 MMOL/L (-2.5-2.5); ABG HCO3 24.3 MMOL/L (20-26); ABG PCO2 42.4 MM HG (35-48); ABG PO2 84.7 MM HG (80-95); ABG TCO2 22.3 MMOL/L (23-27)
[2017-02-28 06:19] LABS: Basophils # 0.1 10*3/uL (0.0-0.2); Basophils % 1.1 % (0.0-0.8); Eosinophils # 0.5 10*3/uL (0.0-0.87); Eosinophils % 6.4 % (0.00-10.9); Hematocrit 36.4 VOL% (42.0-52.0); Hemoglobin 12.2 GM/DL (14.0-18.0); Immature Granulocytes % 0.5 %; Immature Granulocytes Absolute 0.04 #; Lymphocytes # 1.5 10*3/uL (1.4-4.0); Lymphocytes % 20.7 % (21.2-54.2); Mean Corpuscular HGB Conc 33.5 GM/DL (32-36); Mean Corpuscular Hemoglobin 30 PG (27-34); Mean Corpuscular Volume 89.2 FL (87-102); Mean Platelet Volume 10.3 FL (9.6-12.0); Monocytes # 0.6 10*3/uL (0.11-0.8); Monocytes % 8.7 % (1.7-12.7); Neutrophils # 4.6 10*3/uL (1.4-7.4); Neutrophils % 62.6 % (38.7-73.9); Platelet Count 189 T/CUMM (130-400); Red Blood Count 4.08 MC/CUMM (3.8-5.5); Red Cell Distribution Width 14.7 % (9.3-17.3); White Blood Count 7.4 T/CUMM (4-12)
[2017-02-28 06:54] LABS: Calcium 8.4 MG/DL (8.5-10.1); Osmolality,Calculated 275.7 MOS/KG (273-304); Potassium 4.7 MMOL/L (3.5-5.1)
[2017-02-28] MEDS: INSULIN REGULAR 100 UNIT/ML SUBCUT SCH ×5 (07:19→21:29)
[2017-02-28] MEDS: FAMOTIDINE 20 MG TABLET PO SCH (08:28)
[2017-02-28] MEDS: CHOLECALCIFEROL 1,000 UNIT TABLET PO SCH (08:28)
[2017-02-28] MEDS: DOCUSATE SODIUM 100 MG CAPSULE PO SCH ×2 (08:28→21:21)
[2017-02-28] MEDS: hydroCHLOROthiazide 25 MG TABLET PO SCH (08:28)
[2017-02-28] MEDS: LOSARTAN 50 MG TABLET PO SCH (08:28)
[2017-02-28] MEDS: FERROUS SULFATE 325 MG TABLET PO SCH (08:29)
[2017-02-28] MEDS: ATENOLOL 50 MG TABLET PO SCH (08:29)
[2017-02-28] MEDS: GLIMEPIRIDE 4 MG TABLET PO SCH ×2 (08:29→21:19)
[2017-02-28] MEDS: ASPIRIN EC 325 MG TABLET PO SCH (08:29)
[2017-02-28] MEDS: MAGNESIUM OXIDE 400 MG TABLET PO SCH ×2 (08:29→21:19)
[2017-02-28] MEDS: amLODIPine 5 MG TABLET PO SCH ×2 (08:29→21:22)
[2017-02-28] MEDS: predniSONE 20 MG TABLET PO SCH (08:29)
[2017-02-28] MEDS: PANTOPRAZOLE 40 MG TABLET PO SCH (08:29)
[2017-02-28] MEDS: cefTRIAXone 1,000 MG in SYRINGE 1 EACH IV SCH ×2 (08:30→21:23)
[2017-02-28] MEDS: PRAMIPEXOLE 1 MG TABLET PO SCH (21:19)
[2017-02-28] MEDS: AZITHROMYCIN INJ 500 MG in SODIUM CHLORIDE 0.9% 250 ML IV SCH (21:20)
[2017-02-28] MEDS: traZODone 50 MG TABLET PO SCH (21:20)
[2017-02-28] MEDS: SERTRALINE 50 MG TABLET PO SCH (21:20)
[2017-02-28] MEDS: SIMVASTATIN 10 MG TABLET PO SCH (21:21)
[2017-02-28] MEDS: ENOXAPARIN 40 MG/0.4 ML SYRINGE SUBCUT SCH (21:22)
[2017-03-01] MEDS: ALBUTEROL/IPRATROPIUM 3 ML NEB RESP TX SCH ×5 (00:07→23:58)
[2017-03-01] MEDS: SODIUM CHLORIDE 0.9% 1,000 ML IV SCH ×2 (02:41→17:49)
[2017-03-01 05:25] LABS: Basophils % 0.5 % (0.0-0.8); Eosinophils # 0.4 10*3/uL (0.0-0.87); Eosinophils % 4.9 % (0.00-10.9); Hematocrit 36.6 VOL% (42.0-52.0); Hemoglobin 12.7 GM/DL (14.0-18.0); Immature Granulocytes % 0.5 %; Immature Granulocytes Absolute 0.04 #; Lymphocytes # 1.5 10*3/uL (1.4-4.0); Mean Corpuscular HGB Conc 34.7 GM/DL (32-36); Mean Corpuscular Hemoglobin 31 PG (27-34); Mean Corpuscular Volume 88.2 FL (87-102); Mean Platelet Volume 10.9 FL (9.6-12.0); Monocytes # 0.6 10*3/uL (0.11-0.8); Monocytes % 8.1 % (1.7-12.7); Neutrophils # 5.3 10*3/uL (1.4-7.4); Platelet Count 199 T/CUMM (130-400); Red Blood Count 4.15 MC/CUMM (3.8-5.5); Red Cell Distribution Width 14.7 % (9.3-17.3); White Blood Count 7.9 T/CUMM (4-12)
[2017-03-01 05:57] LABS: Calcium 8.4 MG/DL (8.5-10.1); Osmolality,Calculated 283.3 MOS/KG (273-304); Potassium 4.7 MMOL/L (3.5-5.1)
[2017-03-01] MEDS: INSULIN REGULAR 100 UNIT/ML SUBCUT SCH ×3 (08:52→17:49)
[2017-03-01] MEDS: cefTRIAXone 1,000 MG in SYRINGE 1 EACH IV SCH ×2 (09:56→20:21)
[2017-03-01] MEDS: FAMOTIDINE 20 MG TABLET PO SCH (09:57)
[2017-03-01] MEDS: LOSARTAN 50 MG TABLET PO SCH (09:57)
[2017-03-01] MEDS: GLIMEPIRIDE 4 MG TABLET PO SCH ×2 (09:58→20:19)
[2017-03-01] MEDS: PANTOPRAZOLE 40 MG TABLET PO SCH (09:58)
[2017-03-01] MEDS: FERROUS SULFATE 325 MG TABLET PO SCH (09:58)
[2017-03-01] MEDS: ASPIRIN EC 325 MG TABLET PO SCH (09:58)
[2017-03-01] MEDS: ATENOLOL 50 MG TABLET PO SCH (09:58)
[2017-03-01] MEDS: amLODIPine 5 MG TABLET PO SCH ×2 (09:58→20:18)
[2017-03-01] MEDS: hydroCHLOROthiazide 25 MG TABLET PO SCH (09:58)
[2017-03-01] MEDS: DOCUSATE SODIUM 100 MG CAPSULE PO SCH ×2 (09:58→21:28)
[2017-03-01] MEDS: CHOLECALCIFEROL 1,000 UNIT TABLET PO SCH (09:58)
[2017-03-01] MEDS: predniSONE 20 MG TABLET PO SCH (09:58)
[2017-03-01] MEDS: MAGNESIUM OXIDE 400 MG TABLET PO SCH ×2 (09:58→20:20)
[2017-03-01] MEDS: MORPHINE 10 MG/1 ML VIAL IV PRN ×2 (14:18→20:08)
[2017-03-01] MEDS: guaiFENesin/DM ER 600-30 MG TABLET PO SCH (20:17)
[2017-03-01] MEDS: SIMVASTATIN 10 MG TABLET PO SCH (20:18)
[2017-03-01] MEDS: PRAMIPEXOLE 1 MG TABLET PO SCH (20:18)
[2017-03-01] MEDS: traZODone 50 MG TABLET PO SCH (20:19)
[2017-03-01] MEDS: SERTRALINE 50 MG TABLET PO SCH (20:20)
[2017-03-01] MEDS: AZITHROMYCIN INJ 500 MG in SODIUM CHLORIDE 0.9% 250 ML IV SCH (21:27)
[2017-03-01] MEDS: ENOXAPARIN 40 MG/0.4 ML SYRINGE SUBCUT SCH (21:29)
[2017-03-02] MEDS: SODIUM CHLORIDE 0.9% 1,000 ML IV SCH (04:31)
[2017-03-02 05:35] LABS: Basophils # 0.1 10*3/uL (0.0-0.2); Basophils % 0.7 % (0.0-0.8); Eosinophils # 0.4 10*3/uL (0.0-0.87); Eosinophils % 4.8 % (0.00-10.9); Hematocrit 35.3 VOL% (42.0-52.0); Hemoglobin 11.7 GM/DL (14.0-18.0); Immature Granulocytes % 0.7 %; Immature Granulocytes Absolute 0.06 #; Lymphocytes # 1.6 10*3/uL (1.4-4.0); Lymphocytes % 18.6 % (21.2-54.2); Mean Corpuscular HGB Conc 33.1 GM/DL (32-36); Mean Corpuscular Hemoglobin 30 PG (27-34); Mean Corpuscular Volume 89.1 FL (87-102); Mean Platelet Volume 10.4 FL (9.6-12.0); Monocytes # 0.8 10*3/uL (0.11-0.8); Monocytes % 9.1 % (1.7-12.7); Neutrophils # 5.7 10*3/uL (1.4-7.4); Neutrophils % 66.1 % (38.7-73.9); Platelet Count 182 T/CUMM (130-400); Red Blood Count 3.96 MC/CUMM (3.8-5.5); Red Cell Distribution Width 14.6 % (9.3-17.3); White Blood Count 8.6 T/CUMM (4-12)
[2017-03-02 06:01] LABS: Calcium 8.4 MG/DL (8.5-10.1); Osmolality,Calculated 280.4 MOS/KG (273-304); Potassium 4.1 MMOL/L (3.5-5.1)
[2017-03-02] MEDS: INSULIN REGULAR 100 UNIT/ML SUBCUT SCH ×4 (07:54→20:40)
[2017-03-02] MEDS: ALBUTEROL/IPRATROPIUM 3 ML NEB RESP TX SCH ×3 (08:17→19:12)
[2017-03-02] MEDS: cefTRIAXone 1,000 MG in SYRINGE 1 EACH IV SCH ×2 (09:45→21:07)
[2017-03-02] MEDS: DOCUSATE SODIUM 100 MG CAPSULE PO SCH ×2 (09:45→20:38)
[2017-03-02] MEDS: ASPIRIN EC 325 MG TABLET PO SCH (09:45)
[2017-03-02] MEDS: LOSARTAN 50 MG TABLET PO SCH (09:45)
[2017-03-02] MEDS: predniSONE 20 MG TABLET PO SCH (09:45)
[2017-03-02] MEDS: guaiFENesin/DM ER 600-30 MG TABLET PO SCH ×2 (09:45→20:36)
[2017-03-02] MEDS: FERROUS SULFATE 325 MG TABLET PO SCH (09:45)
[2017-03-02] MEDS: ATENOLOL 50 MG TABLET PO SCH (09:45)
[2017-03-02] MEDS: FAMOTIDINE 20 MG TABLET PO SCH (09:46)
[2017-03-02] MEDS: PANTOPRAZOLE 40 MG TABLET PO SCH (09:46)
[2017-03-02] MEDS: GLIMEPIRIDE 4 MG TABLET PO SCH ×2 (09:46→20:37)
[2017-03-02] MEDS: hydroCHLOROthiazide 25 MG TABLET PO SCH (09:46)
[2017-03-02] MEDS: CHOLECALCIFEROL 1,000 UNIT TABLET PO SCH (09:46)
[2017-03-02] MEDS: amLODIPine 5 MG TABLET PO SCH ×2 (09:46→20:52)
[2017-03-02] MEDS: MAGNESIUM OXIDE 400 MG TABLET PO SCH ×2 (09:46→20:36)
[2017-03-02] MEDS: MORPHINE 10 MG/1 ML VIAL IV PRN ×2 (14:16→20:53)
[2017-03-02] MEDS: PRAMIPEXOLE 1 MG TABLET PO SCH (20:36)
[2017-03-02] MEDS: SERTRALINE 50 MG TABLET PO SCH (20:37)
[2017-03-02] MEDS: traZODone 50 MG TABLET PO SCH (20:38)
[2017-03-02] MEDS: SIMVASTATIN 10 MG TABLET PO SCH (20:39)
[2017-03-02] MEDS: ENOXAPARIN 40 MG/0.4 ML SYRINGE SUBCUT SCH (20:40)
[2017-03-02] MEDS: AZITHROMYCIN INJ 500 MG in SODIUM CHLORIDE 0.9% 250 ML IV SCH (21:04)
[2017-03-02] MEDS: oxyCODONE IR 5 MG TABLET PO PRN (22:17)
[2017-03-03] MEDS: ALBUTEROL/IPRATROPIUM 3 ML NEB RESP TX SCH ×2 (01:03→07:50)
[2017-03-03] MEDS: INSULIN REGULAR 100 UNIT/ML SUBCUT SCH (07:21)
[2017-03-03 07:22] VITALS: BP 155/73
[2017-03-03] MEDS: MAGNESIUM OXIDE 400 MG TABLET PO SCH (09:29)
[2017-03-03] MEDS: guaiFENesin/DM ER 600-30 MG TABLET PO SCH (09:29)
[2017-03-03] MEDS: LOSARTAN 50 MG TABLET PO SCH (09:29)
[2017-03-03] MEDS: amLODIPine 5 MG TABLET PO SCH (09:29)
[2017-03-03] MEDS: ASPIRIN EC 325 MG TABLET PO SCH (09:29)
[2017-03-03] MEDS: DOCUSATE SODIUM 100 MG CAPSULE PO SCH (09:29)
[2017-03-03] MEDS: FERROUS SULFATE 325 MG TABLET PO SCH (09:29)
[2017-03-03] MEDS: GLIMEPIRIDE 4 MG TABLET PO SCH (09:29)
[2017-03-03] MEDS: hydroCHLOROthiazide 25 MG TABLET PO SCH (09:29)
[2017-03-03] MEDS: PANTOPRAZOLE 40 MG TABLET PO SCH (09:30)
[2017-03-03] MEDS: cefTRIAXone 1,000 MG in SYRINGE 1 EACH IV SCH (09:30)
[2017-03-03] MEDS: predniSONE 20 MG TABLET PO SCH (09:30)
[2017-03-03] MEDS: FAMOTIDINE 20 MG TABLET PO SCH (09:30)
[2017-03-03] MEDS: ATENOLOL 50 MG TABLET PO SCH (09:30)
[2017-03-03] MEDS: CHOLECALCIFEROL 1,000 UNIT TABLET PO SCH (09:30)
[2017-03-03] MEDS: oxyCODONE IR 5 MG TABLET PO PRN (09:56)
== END 2017-03-03 10:58 | disposition home health service (06) | DRG 190 ==
LOC: N.ED 17:55 → SUATTDRO 20:32 → N.EDINP 20:32 → N.3E 20:53
PROVIDERS: ADMIT Internal Medicine; ATTEND Internal Medicine